=== PATIENT | male | born 1965 | race African-American/Black ===

== ENCOUNTER 2017-11-21 21:40 | Inpatient (IN) | payer MEDICAID ==
[~2017-11-21] VITALS: Ht 180.3 cm; Wt 114.8 kg
[2017-11-21 21:48] VITALS: BP 146/83; PULSE 72; RESP 14; TEMP 98; O2SAT 100
[2017-11-21] MEDS ORDERED: SODIUM CHLOR 0.9% 1000 ML INJ 1,000 ML IV SCH (21:55)
[2017-11-21 22:00] VITALS: RESP 15; O2SAT 100
[2017-11-21] MEDS ORDERED: SODIUM CHLORIDE 0.9% FLUSH 10 ML FLUSH IV FLUSH PRN ×2 (22:00→22:15)
[2017-11-21] MEDS ORDERED: MAGNESIUM HYDROXIDE SUSP 30 ML CUP PO PRN (22:15)
[2017-11-21] MEDS ORDERED: SENNOSIDES 8.6 MG TAB PO PRN (22:15)
[2017-11-21] MEDS ORDERED: LACTULOSE SYRUP 20 GM/30 ML CUP PO PRN (22:15)
[2017-11-21] MEDS ORDERED: ACETAMINOPHEN 325 MG TAB PO PRN (22:15)
[2017-11-21] MEDS ORDERED: ONDANSETRON HCL 4 MG/2 ML VIAL IVP PRN (22:15)
[2017-11-21] MEDS ORDERED: NALOXONE HCL 0.4 MG/ML AMP IV PUSH PRN (22:15)
[2017-11-21] MEDS ORDERED: BISACODYL 10 MG SUPP RECTAL PRN (22:15)
[2017-11-21 22:47] LABS: AUTOMATED NEUTROPHIL # 4.3 TH/MM3 (1.8-7.7); BASOPHIL # 0.1 TH/MM3 (0-0.2); BASOPHIL % 0.7 % (0.0-2.0); EOSINOPHIL # 0.5 TH/MM3 (0-0.4); EOSINOPHIL % 7.1 % (0.0-4.0); HEMATOCRIT 27.2 % (39.0-51.0); HEMOGLOBIN 8.5 GM/DL (13.0-17.0); LYMPHOCYTE # 1.7 TH/MM3 (1.0-4.8); MEAN CELL VOLUME 73.9 FL (80.0-100.0); MEAN CORPUSCULAR HEMOGLOBIN 23.2 PG (27.0-34.0); MEAN CORPUSCULAR HGB CONC 31.3 % (32.0-36.0); MEAN PLATELET VOLUME 8.8 FL (7.0-11.0); MONO % 10.4 % (0.0-8.0); MONOCYTE # 0.8 TH/MM3 (0-0.9); NEUT % 58.8 % (16.0-70.0); PLATELET COUNT 200 TH/MM3 (150-450); RED BLOOD COUNT 3.67 MIL/MM3 (4.50-5.90); RED CELL DISTRIBUTION WIDTH 21.8 % (11.6-17.2); WHITE BLOOD COUNT 7.3 TH/MM3 (4.0-11.0)
--- NOTE | 2017-11-21 22:57 | PD ---
HPI Chief Complaint: GI Complaint Time Seen by Provider: 21:55 Travel History International Travel<30 days: No Contact w/Intl Traveler<30days: No Traveled to known affect area: No History of Present Illness HPI 52-year-old man, transferred from [employer] for GI bleed. 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 Went to the ED with 10 days of abdominal pain, worse on the right side, associated with melena. He was found to have a hemoglobin of 8.9, decreased from baseline, so sent to the emergency. Discussed with hitesh scott, with GI, and Dr. Romano accepted. History Past Medical History Narrative Medical GI stromal tumor Diabetes Hypertension Tetanus Vaccination: Unknown Influenza Vaccination: No Social History Alcohol Use: No Tobacco Use: Yes (1/3 OF A PCK/DAY) Allergies-Medications (Allergen,Severity, Reaction): Coded Allergies: latex (Verified Adverse Reaction, Unknown, 11/21/17) Review of Systems Except as stated in HPI: all other systems reviewed are Neg Physical Exam Narrative GENERAL: 52-year-old man, generally well-appearing, no acute distress. SKIN: Focused skin assessment warm/dry. HEAD: Atraumatic. Normocephalic. EYES: Pupils equal and round. No scleral icterus. No injection or drainage. ENT: No nasal bleeding or discharge. Mucous membranes pink and moist. NECK: Trachea midline. No JVD. CARDIOVASCULAR: Regular rate and rhythm. No murmur appreciated. RESPIRATORY: No accessory muscle use. Clear to auscultation. Breath sounds equal bilaterally. GASTROINTESTINAL: Admits soft, mild diffuse tenderness. No rebound or guarding. Sclera little bit pale. MUSCULOSKELETAL: No obvious deformities. No clubbing. No cyanosis. No edema. NEUROLOGICAL: Awake and alert. No obvious cranial nerve deficits. Motor grossly within normal limits. Normal speech. PSYCHIATRIC: Appropriate mood and affect; insight and judgment normal. Data Data Last Documented VS Vital Signs Date Time Temp Pulse Resp B/P (MAP) Pulse Ox O2 Delivery O2 Flow Rate FiO2 11/21/17 22:00 15 100 Room Air 11/21/17 21:48 98.0 72 146/83 (104) Orders Orders Complete Blood Count With Diff (11/21/17 21:55) Iv Access Insert/Monitor (11/21/17 21:55) Pantoprazole Inj (Protonix Inj) (12/23/17 22:00) Ecg Monitoring (11/21/17 21:55) Oximetry (11/21/17 21:55) Sodium Chloride 0.9% Flush (Ns Flush) (11/21/17 22:00) Sodium Chlor 0.9% 1000 Ml Inj (Ns 1000 M (11/21/17 21:55) Admit Order (Ed Use Only) (11/21/17 ) Labs Laboratory Tests Test 11/21/17 22:05 White Blood Count 7.3 TH/MM3 Red Blood Count 3.67 MIL/MM3 Hemoglobin 8.5 GM/DL Hematocrit 27.2 % Mean Corpuscular Volume 73.9 FL Mean Corpuscular Hemoglobin 23.2 PG Mean Corpuscular Hemoglobin Concent 31.3 % Red Cell Distribution Width 21.8 % Platelet Count 200 TH/MM3 Mean Platelet Volume 8.8 FL Neutrophils (%) (Auto) 58.8 % Lymphocytes (%) (Auto) 23.0 % Monocytes (%) (Auto) 10.4 % Eosinophils (%) (Auto) 7.1 % Basophils (%) (Auto) 0.7 % Neutrophils # (Auto) 4.3 TH/MM3 Lymphocytes # (Auto) 1.7 TH/MM3 Monocytes # (Auto) 0.8 TH/MM3 Eosinophils # (Auto) 0.5 TH/MM3 Basophils # (Auto) 0.1 TH/MM3 CBC Comment DIFF FINAL Differential Comment MDM Medical Decision Making Medical Screen Exam Complete: Yes Emergency Medical Condition: Yes Differential Diagnosis GI bleed, melena, GI malignancy, other Narrative Course Medical decision making This 52-year-old man who presents to the emergency department as a transfer for GI bleed and melena. Looks well. Vital signs are stable. We'll recheck H&H. Reviewed outpatient records from [employer]. Reviewed EKG. Spoke with Dr. Chambers , will admit the patient. Nothing by mouth after midnight. GI consult. Diagnosis Primary Impression: GI bleed Admitting Information Admitting Physician Requests: Yaniv Washington MD Nov 21, 2017 22:57
[2017-11-21] MEDS: SODIUM CHLOR 0.9% 1000 ML INJ 1,000 ML IV SCH (23:10)
[2017-11-21] MEDS: PANTOPRAZOLE INJ 80 MG in SODIUM CHLORIDE 0.9% INJ 100 ML IV SCH (23:10)
[2017-11-21 23:11] VITALS: BP 147/78; PULSE 78; RESP 18; TEMP 98.1; O2SAT 98
[2017-11-22] VITALS (8 sets, daily range): BP systolic 127–145; BP diastolic 61–84; PULSE 72–83; RESP 16–20; TEMP 97.6–98.2; O2SAT 95–100
[2017-11-22] MEDS ORDERED: DEXTROSE 50% IN WATER 50 ML VIAL(D50) IV PUSH PRN (01:15)
[2017-11-22] MEDS ORDERED: GLUCAGON 1 MG/ML VIAL OTHER PRN (01:15)
--- NOTE | 2017-11-22 01:23 | HHI.HP ---
HPI Service [facility] Primary Care Physician Unknown Admission Diagnosis abdominal pain, GI bleed Diagnoses: Travel History International Travel<30 Days: No Contact w/Intl Traveler <30 Da: No Traveled to Known Affected Are: No History of Present Illness 52-year-old male with a past medical history significant for hypertension, diabetes and gastrointestinal stromal tumor with metastatic disease presents to the emergency department as a transfer from [facility]. The patient reports he has had 1.5 weeks of black, tarry stools and was being treated for a GI bleed. Gastroenterology was consulted and there was concern for a possible bleed from the patient's tumor. He was transferred to [facility] for possible invasive radiology intervention. The patient reports abdominal pain. Denies dizziness/lightheadedness. Vital signs stable. Labs pending. Patient is followed by oncology in [place]. He cannot remember the name of his oncologist. Review of Systems Denies fever or chills Denies blurry vision, otorrhea, rhinorrhea Denies sore throat and cough No chest pain, palpitations, shortness of breath Positive abdominal pain Denies constipation/diarrhea/nausea/vomiting Denies muscle pain/weakness No rashes Past Family Social History Past Medical History Hypertension Diabetes mellitus Gastrointestinal stromal tumor with metastatic disease Past Surgical History Bilateral knee surgery Left thumb L4-L5 laminectomy Reported Medications Patient reports he takes Gleevec 400 mg twice a day Allergies: Coded Allergies: latex (Verified Adverse Reaction, Unknown, 11/21/17) Family History Denies family history of diabetes mellitus/coronary artery disease Social History Smokes approximately one pack of cigarettes every 3 days. Denies alcohol use. Positive marijuana. Denies other illicit drugs. Physical Exam Vital Signs Vital Signs Date Time Temp Pulse Resp B/P (MAP) Pulse Ox O2 Delivery O2 Flow Rate FiO2 11/22/17 01:00 97.6 78 17 130/61 (84) 100 11/21/17 23:13 11/21/17 23:11 98.1 78 18 147/78 (101) 98 Room Air 11/21/17 22:00 15 100 Room Air 11/21/17 21:48 98.0 72 14 146/83 (457) 100 Physical Exam GENERAL: Russian Russian male lying in bed SKIN: No rashes, ecchymoses or lesions. Cool and dry. HEAD: Atraumatic. Normocephalic. No temporal or scalp tenderness. EYES: Pupils equal round and reactive. Extraocular motions intact. No scleral icterus. No injection or drainage. ENT: Nose without bleeding, purulent drainage or septal hematoma. Throat without erythema, tonsillar hypertrophy or exudate. Uvula midline. Airway patent. NECK: Trachea midline. No JVD or lymphadenopathy. Supple, nontender, no meningeal signs. CARDIOVASCULAR: Regular rate and rhythm without murmurs, gallops, or rubs. RESPIRATORY: Clear to auscultation. Breath sounds equal bilaterally. No wheezes , rales, or rhonchi. GASTROINTESTINAL: Abdomen soft, nondistended. Diffusely tender to palpation. No guarding. MUSCULOSKELETAL: Extremities without clubbing, cyanosis, or edema. No joint tenderness, effusion, or edema noted. No calf tenderness. NEUROLOGICAL: Awake and alert. Cranial nerves II through XII intact. Motor and sensory grossly within normal limits. Normal speech. Laboratory Laboratory Tests Test 11/21/17 22:05 11/22/17 00:28 White Blood Count 7.3 Red Blood Count 3.67 Hemoglobin 8.5 Hematocrit 27.2 Mean Corpuscular Volume 73.9 Mean Corpuscular Hemoglobin 23.2 Mean Corpuscular Hemoglobin Concent 31.3 Red Cell Distribution Width 21.8 Platelet Count 200 Mean Platelet Volume 8.8 Neutrophils (%) (Auto) 58.8 Lymphocytes (%) (Auto) 23.0 Monocytes (%) (Auto) 10.4 Eosinophils (%) (Auto) 7.1 Basophils (%) (Auto) 0.7 Neutrophils # (Auto) 4.3 Lymphocytes # (Auto) 1.7 Monocytes # (Auto) 0.8 Eosinophils # (Auto) 0.5 Basophils # (Auto) 0.1 CBC Comment DIFF FINAL Differential Comment Result Diagram: 11/21/17 5994 Caprini VTE Risk Assessment Caprini VTE Risk Assessment: Mod/High Risk (score >= 2) Caprini Risk Assessment Model Point Value = 1 Point Value = 2 Point Value = 3 Point Value = 5 Age 41-60 Minor surgery BMI > 25 kg/m2 Swollen legs Varicose veins or History of unexplained or recurrent spontaneous Oral contraceptives or hormone replacement Sepsis (< 1 month) Serious lung disease, including pneumonia (< 1 month) Abnormal pulmonary function Acute myocardial infarction Congestive heart failure (< 1 month) History of inflammatory bowel disease Medical patient at bed rest Age 61-74 Arthroscopic surgery Major open surgery (> 45 min) Laparoscopic surgery (> 45 min) Malignancy Confined to bed (> 72 hours) Immobilizing plaster cast Central venous access Age >= 75 History of VTE Family history of VTE Factor V Leiden Prothrombin [id number] Lupus anticoagulant Anticardiolipin antibodies Elevated serum homocysteine Heparin-induced thrombocytopenia Other congenital or acquired thrombophilia Stroke (< 1 month) Elective arthroplasty Hip, pelvis, or leg fracture Acute spinal cord injury (< 1 month) Prophylaxis Regimen Total Risk Factor Score Risk Level Prophylaxis Regimen 0-1 Low Early ambulation 2 Moderate Order ONE of the following: *Sequential Compression Device (SCD) *Heparin 5000 units SQ BID 3-4 Higher Order ONE of the following medications: *Heparin 5000 units SQ TID *Enoxaparin/Lovenox 40 mg SQ daily (WT < 150 kg, CrCl > 30 mL/min) *Enoxaparin/Lovenox 30 mg SQ daily (WT < 150 kg, CrCl > 10-29 mL/min) *Enoxaparin/Lovenox 30 mg SQ BID (WT < 150 kg, CrCl > 30 mL/min) AND/OR *Sequential Compression Device (SCD) 5 or more Highest Order ONE of the following medications: *Heparin 5000 units SQ TID (Preferred with Epidurals) *Enoxaparin/Lovenox 40 mg SQ daily (WT < 150 kg, CrCl > 30 mL/min) *Enoxaparin/Lovenox 30 mg SQ daily (WT < 150 kg, CrCl > 10-29 mL/min) *Enoxaparin/Lovenox 30 mg SQ BID (WT < 150 kg, CrCl > 30 mL/min) AND *Sequential Compression Device (SCD) Assessment and Plan Assessment and Plan Assessment/plan: 1. GI bleed/possible bleed related to patient's cancer H&H 8.5/27.2 Protonix drip Serial H&H Transfuse when necessary Gastroenterology consulted, appreciate recommendations 2. Metastatic GI stromal tumor Per patient he has metastases to the liver, spleen, stomach and lung Currently on Gleevec 400 mg twice a day Followed by oncology at [place] May require interventional radiology for possible bleed 3. Hypertension Resume home medications once reconciled 4. Diabetes mellitus Holding oral antihyperglycemic SSI Monitor blood glucose FEN NPO Electrolytes: monitor and replete prn Holding pharmacologic anticoagulation out of concern for active bleed Physician Certification 2 Midnight Certification Type: Admission for Inpatient Services Order for Inpatient Services The services are ordered in accordance with Medicare regulations or non- Medicare payer requirements, as applicable. In the case of services not specified as inpatient-only, they are appropriately provided as inpatient services in accordance with the 2-midnight benchmark. Estimated LOS (days): 2 2 days is the estimated time the patient will need to remain in the hospital, assuming treatment plan goals are met and no additional complications. Post-Hospital Plan: Not yet determined Mary Chambers MD Nov 22, 2017 01:23
[2017-11-22 01:31] LABS: HEMATOCRIT 25.4 % (39.0-51.0); HEMOGLOBIN 8.2 GM/DL (13.0-17.0)
[2017-11-22] MEDS: HYDROmorphone HCL PF 2 MG/ML VIAL IV PUSH PRN ×5 (04:50→23:51)
[2017-11-22 05:24] LABS: BICARBONATE 27.2 MEQ/L (21.0-32.0); CALCIUM 8.1 MG/DL (8.5-10.1); CREATININE 0.83 MG/DL (0.60-1.30)
[2017-11-22 05:27] LABS: AUTOMATED NEUTROPHIL # 3.9 TH/MM3 (1.8-7.7); BASOPHIL % 0.7 % (0.0-2.0); EOSINOPHIL # 0.4 TH/MM3 (0-0.4); EOSINOPHIL % 6.6 % (0.0-4.0); HEMATOCRIT 24.8 % (39.0-51.0); HEMOGLOBIN 8.1 GM/DL (13.0-17.0); LYMPH % 22.9 % (9.0-44.0); LYMPHOCYTE # 1.5 TH/MM3 (1.0-4.8); MEAN CELL VOLUME 73.8 FL (80.0-100.0); MEAN CORPUSCULAR HEMOGLOBIN 24.1 PG (27.0-34.0); MEAN CORPUSCULAR HGB CONC 32.7 % (32.0-36.0); MONO % 11.2 % (0.0-8.0); MONOCYTE # 0.7 TH/MM3 (0-0.9); NEUT % 58.6 % (16.0-70.0); PLATELET COUNT 196 TH/MM3 (150-450); RED BLOOD COUNT 3.37 MIL/MM3 (4.50-5.90); RED CELL DISTRIBUTION WIDTH 21.7 % (11.6-17.2); WHITE BLOOD COUNT 6.6 TH/MM3 (4.0-11.0)
[2017-11-22] MEDS: INSULIN ASPART SUPPLEMENTAL SCALE SQ SCH ×4 (08:00→21:00)
[2017-11-22] MEDS: SODIUM CHLOR 0.9% 1000 ML INJ 1,000 ML IV SCH (08:45)
[2017-11-22] MEDS: PANTOPRAZOLE INJ 80 MG in SODIUM CHLORIDE 0.9% INJ 100 ML IV SCH ×2 (08:55→21:00)
[2017-11-22] MEDS: SODIUM CHLORIDE 0.9% FLUSH 10 ML FLUSH IV FLUSH SCH ×2 (09:00→21:00)
[2017-11-22] MEDS: DOCUSATE SODIUM 50 MG/SENNA 8.6 MG TAB PO SCH ×2 (09:00→21:00)
[2017-11-22 10:44] LABS: HEMATOCRIT 24.2 % (39.0-51.0); HEMOGLOBIN 7.8 GM/DL (13.0-17.0)
--- NOTE | 2017-11-22 12:29 | PD.CONS ---
HPI History of Present Illness This is a 52 year old male with hx GI stromal tumor diagnosed 1 y ago with mets to liver and spleen, DM, HTN who was transferred from [place] for GIB. he is having melanotic stool. has been having abd pain diffusely for last 2 weeks. Had EGD and colonoscopy 2-3 m ago at [facility] with findings colon polyp, no further details from pt. Denies n/v. Followed by oncology in [place]. Limited historian. (Wendy Call) PFSH Past Medical History Hypertension Diabetes mellitus Gastrointestinal stromal tumor with metastatic disease Past Surgical History Bilateral knee surgery Left thumb L4-L5 laminectomy (Wendy Call) Coded Allergies: latex (Verified Adverse Reaction, Unknown, 11/21/17) Family History Denies family history of diabetes mellitus/coronary artery disease Social History Smokes approximately one pack of cigarettes every 3 days. Denies alcohol use. Positive marijuana. Denies other illicit drugs. (Wendy Call) Review of Systems Constitutional: DENIES: Dizziness Eyes: DENIES: Blurred vision Ears, nose, mouth, throat: DENIES: Hearing loss Respiratory: DENIES: Wheezing Cardiovascular: DENIES: Syncope Gastrointestinal: COMPLAINS OF: Abdominal pain, Black stools, DENIES: Bloody stools, Constipation, Diarrhea, Nausea, Vomiting, Hematemesis Genitourinary: DENIES: Hematuria Musculoskeletal: DENIES: Joint Swelling Integumentary: DENIES: Rash Hematologic/lymphatic: DENIES: Bruising Psychiatric: DENIES: Anxiety (Wendy Call) GI Exam Vitals I&O Vital Signs Date Time Temp Pulse Resp B/P (MAP) Pulse Ox O2 Delivery O2 Flow Rate FiO2 11/22/17 08:40 97.8 83 20 127/71 (89) 95 11/22/17 05:00 97.8 77 17 142/79 (100) 97 11/22/17 01:00 97.6 78 17 130/61 (84) 100 11/21/17 23:13 11/21/17 23:11 98.1 78 18 147/78 (101) 98 Room Air 11/21/17 22:00 15 100 Room Air 11/21/17 21:48 98.0 72 14 146/83 (104) 100 I/O 11/21/17 11/21/17 11/21/17 11/22/17 11/22/17 11/22/17 07:00 15:00 23:00 07:00 15:00 23:00 Intake Total 803 ml Output Total 450 ml Balance 353 ml Intake IV Total 803 ml Output Urine Total 450 ml Laboratory Test 11/21/17 22:05 11/22/17 00:28 11/22/17 04:43 11/22/17 10:24 White Blood Count 7.3 TH/MM3 6.6 TH/MM3 Red Blood Count 3.67 MIL/MM3 3.37 MIL/MM3 Hemoglobin 8.5 GM/DL 8.2 GM/DL 8.1 GM/DL 7.8 GM/DL Hematocrit 27.2 % 25.4 % 24.8 % 24.2 % Mean Corpuscular Volume 73.9 FL 73.8 FL Mean Corpuscular Hemoglobin 23.2 PG 24.1 PG Mean Corpuscular Hemoglobin Concent 31.3 % 32.7 % Red Cell Distribution Width 21.8 % 21.7 % Platelet Count 200 TH/MM3 196 TH/MM3 Mean Platelet Volume 8.8 FL 9.0 FL Neutrophils (%) (Auto) 58.8 % 58.6 % Lymphocytes (%) (Auto) 23.0 % 22.9 % Monocytes (%) (Auto) 10.4 % 11.2 % Eosinophils (%) (Auto) 7.1 % 6.6 % Basophils (%) (Auto) 0.7 % 0.7 % Neutrophils # (Auto) 4.3 TH/MM3 3.9 TH/MM3 Lymphocytes # (Auto) 1.7 TH/MM3 1.5 TH/MM3 Monocytes # (Auto) 0.8 TH/MM3 0.7 TH/MM3 Eosinophils # (Auto) 0.5 TH/MM3 0.4 TH/MM3 Basophils # (Auto) 0.1 TH/MM3 0.0 TH/MM3 CBC Comment DIFF FINAL DIFF FINAL Differential Comment Blood Urea Nitrogen 15 MG/DL Creatinine 0.83 MG/DL Random Glucose 73 MG/DL Calcium Level 8.1 MG/DL Sodium Level 143 MEQ/L Potassium Level 3.8 MEQ/L Chloride Level 110 MEQ/L Carbon Dioxide Level 27.2 MEQ/L Anion Gap 6 MEQ/L Estimat Glomerular Filtration Rate 117 ML/MIN Physical Examination HEENT: PERRL; normocephalic; atraumatic; no jaundice. CHEST: CTA CARDIAC: RRR + murmur ABDOMEN: Soft, mildly distended, diffuse TTP; no hepatosplenomegaly; bowel sounds are present in all four quadrants. EXTREMITIES: No clubbing, cyanosis, or edema. SKIN: Normal; no rash; no jaundice. NET WASHER: No focal deficits; alert and oriented times three. (Wendy Call) Assessment and Plan Plan ASSESSMENT melena, anemia - anemia microcytic hypochromic likely multifactorial, gradual drop in HGB over last 24h. transferred from [place] for GI bleeding. concern for bleeding mass. - abd pain - GIST tumor mets to liver and spleen PLAN - coags - EGD today 1400 - obtain consent - keep NPO - consider IR consult for embolization depending on EGD findings - supportive care - further recs to follow This pt seen bydarling and Dr Fragoso and this note is written on his behalf (Wendy Call) Physician Comments Seen and examined, plan as above. Will proceed with EGD today. Further recommendations to follow. (Mendel Fragoso MD) Wendy Call Nov 22, 2017 12:29 Mendel Fragoso MD Nov 22, 2017 14:41
[2017-11-22 13:20] LABS: INTERNATIONAL NORMALIZED RATIO 1.1 RATIO; PROTHROMBIN TIME - PATIENT 10.7 SEC (9.8-11.6)
--- NOTE | 2017-11-22 14:40 | GIPROC ---
[facility] [address] [facility]. [facility], [address] EGD PROCEDURE REPORT EXAM DATE: 11/22/2017 PATIENT NAME: Lanre Burt MR #: [id number] BIRTHDATE: 1965 ATTENDING: Mendel Fragoso MD ORDER #: [id number] SCIENTIST: STATUS: inpatient INDICATIONS: The patient is a 52 yr old male here for an EGD due to melena PROCEDURE PERFORMED: EGD w/ control of bleeding MEDICATIONS: None and Per Anesthesia. TOPICAL ANESTHETIC: CONSENT: The patient understands the risks and benefits of the procedure and understands that these risks include, but are not limited to: sedation, allergic reaction, infection, perforation and/or bleeding. Alternative means of evaluation and treatment include, among others: physical exam, x-rays, and/or surgical intervention. The patient elects to proceed with this endoscopic procedure. medical equipment was checked for proper function. Hand hygiene and appropriate measures for infection prevention was taken. After the risks, benefits and alternatives of the procedure were thoroughly explained, Informed consent was verified, confirmed and timeout was successfully executed by the treatment team. The patient was anesthetized with topical anesthesia and the endoscope was introduced through the mouth and advanced to the second portion of the duodenum. Retroflexion was performed and was normal The gastroscope was then slowly withdrawn and removed. ESOPHAGUS: The mucosa of the esophagus appeared normal. DUODENUM: The duodenal mucosa appeared normal in the bulb and second portion of the duodenum. STOMACH: A large bleeding, irregular shaped and deep ulcer with heaped up edges, an adherent clot and active oozing of blood was found in the gastric body. Complete hemostasis was achieved by placing a single Cook instinct hemoclip on the bleeding site(s). ADVERSE EVENTS: There were no complications. IMPRESSIONS: 1. The esophagus appeared normal 2. Normal duodenal mucosa in the bulb and second portion of the duodenum 3. 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 4. Retroflexion was performed and was normal RECOMMENDATIONS: Continue PPI PATIENT CONDITION: stable DISPOSITION: Observation REPEAT EXAM: NONE Mendel Fragoso MD eSigned: Mendel Fragoso MD 11/22/2017 2:40 PM cc: PATIENT NAME: Lanre Burt MR#: [id number]
[2017-11-22] MEDS ORDERED: DO NOT ADM ANY ANTICOAGULANT DRUGS PRN (14:45)
[2017-11-22 17:30] LABS: HEMATOCRIT 23.7 % (39.0-51.0); HEMOGLOBIN 7.5 GM/DL (13.0-17.0)
[2017-11-22] MEDS: DEXT 5%-NACL 0.9% 1000 ML INJ 1,000 ML IV SCH (17:30)
[2017-11-22 20:42] LABS: IRON (FE) 12 MCG/DL (65-175)
[2017-11-22 20:45] LABS: % SATURATION IRON PROFILE 3.7 % (20-50); FERRITIN 36 NG/ML (26-388); TOTAL IRON BINDING CAPACITY 323 MCG/DL (250-450)
[2017-11-23 05:15] VITALS: BP 157/89; PULSE 80; RESP 17; TEMP 98.9; O2SAT 98
[2017-11-23] MEDS: HYDROmorphone HCL PF 2 MG/ML VIAL IV PUSH PRN ×4 (05:26→20:00)
[2017-11-23] MEDS: PANTOPRAZOLE INJ 80 MG in SODIUM CHLORIDE 0.9% INJ 100 ML IV SCH ×2 (05:59→18:30)
[2017-11-23] MEDS: DEXT 5%-NACL 0.9% 1000 ML INJ 1,000 ML IV SCH (06:32)
[2017-11-23 07:48] VITALS: O2SAT 98
[2017-11-23 07:54] LABS: HEMATOCRIT 27.7 % (39.0-51.0); HEMOGLOBIN 9.1 GM/DL (13.0-17.0); MEAN CELL VOLUME 74.3 FL (80.0-100.0); MEAN CORPUSCULAR HEMOGLOBIN 24.3 PG (27.0-34.0); MEAN CORPUSCULAR HGB CONC 32.7 % (32.0-36.0); MEAN PLATELET VOLUME 8.7 FL (7.0-11.0); PLATELET COUNT 195 TH/MM3 (150-450); RED BLOOD COUNT 3.73 MIL/MM3 (4.50-5.90); RED CELL DISTRIBUTION WIDTH 21.5 % (11.6-17.2); WHITE BLOOD COUNT 6.7 TH/MM3 (4.0-11.0)
[2017-11-23] MEDS: INSULIN ASPART SUPPLEMENTAL SCALE SQ SCH ×4 (08:00→20:00)
[2017-11-23] MEDS: DOCUSATE SODIUM 50 MG/SENNA 8.6 MG TAB PO SCH ×2 (09:00→20:00)
[2017-11-23 09:25] VITALS: BP 156/87; PULSE 78; RESP 18; TEMP 98.7; O2SAT 99
[2017-11-23] MEDS: SODIUM CHLORIDE 0.9% FLUSH 10 ML FLUSH IV FLUSH SCH ×2 (10:34→20:00)
--- NOTE | 2017-11-23 12:18 | HHI.GIFU ---
Subjective Remarks Pt resting in bed. No obvious bleeding. Hungry. (Wendy Call) Objective Vitals I&O Vital Signs Date Time Temp Pulse Resp B/P (MAP) Pulse Ox O2 Delivery O2 Flow Rate FiO2 11/23/17 09:25 98.7 78 18 156/87 (110) 99 11/23/17 07:48 98 21 11/23/17 05:15 98.9 80 17 157/89 (111) 98 11/22/17 23:57 97.8 83 16 145/81 100 11/22/17 23:42 97.6 77 16 136/63 99 11/22/17 20:00 98.2 72 17 145/80 (101) 98 11/22/17 16:37 98.1 75 20 131/74 (93) 98 11/22/17 15:00 75 18 133/68 (89) 97 11/22/17 14:44 97.9 84 18 120/65 (83) 98 11/22/17 12:35 97.7 80 20 137/84 (101) 97 I/O 11/22/17 11/22/17 11/22/17 11/23/17 11/23/17 11/23/17 07:00 15:00 23:00 07:00 15:00 23:00 Intake Total 803 ml 400 ml 20 ml 1300 ml Output Total 450 ml 600 ml 1500 ml Balance 353 ml 400 ml -580 ml -200 ml Intake Oral 0 ml 0 ml IV Total 803 ml 20 ml 775 ml Packed Cells 400 ml Blood Product IV Normal Saline Flush 125 ml Other 400 ml Output Urine Total 450 ml 600 ml 1500 ml # Voids 3 # Bowel Movements 0 0 Laboratory Laboratory Tests Test 11/22/17 12:50 11/22/17 16:46 11/22/17 19:56 11/23/17 07:45 Prothrombin Time 10.7 Prothromb Time International Ratio 1.1 Activated Partial Thromboplast Time 24.3 Hemoglobin 7.5 9.1 Hematocrit 23.7 27.7 Iron Level 12 Total Iron Binding Capacity 323 Percent Iron Saturation 3.7 Ferritin 36 White Blood Count 6.7 Red Blood Count 3.73 Mean Corpuscular Volume 74.3 Mean Corpuscular Hemoglobin 24.3 Mean Corpuscular Hemoglobin Concent 32.7 Red Cell Distribution Width 21.5 Platelet Count 195 Mean Platelet Volume 8.7 Physical Exam HEENT: PERRL; normocephalic; atraumatic; no jaundice. CHEST: CTA CARDIAC: RRR ABDOMEN: Soft, mildly distended, nontender; no hepatosplenomegaly; bowel sounds are present in all four quadrants. EXTREMITIES: No clubbing, cyanosis, or edema. SKIN: Normal; no rash; no jaundice. EDUCATIONAL AIDE: No focal deficits; alert and oriented times three. (Wendy Call) Assessment and Plan Plan ASSESSMENT melena, anemia - anemia microcytic hypochromic likely multifactorial, gradual drop in HGB over last 24h. transferred from [place] for GI bleeding. HH improved, s/p 1 x PRBC yesterday. s/p EGD found large malignant ulcer with intermittent oozing blood from visible blood vessel, 1 x clip applied will advance diet - abd pain - GIST tumor mets to liver and spleen PLAN - soft diet - monitor HH - if active bleeding, IR consult for embolization - supportive care - follow up with GI and oncology after d/c This pt seen bydarling and Dr Fragoso and this note is written on his behalf (Wendy Call) Physician Comments Seen and examined, plan as above. No evidence of bleeding post endoclip. Will start feeding and follow HH. (Mendel Fragoso MD) Wendy Call Nov 23, 2017 12:18 Mendel Fragoso MD Nov 23, 2017 12:48
[2017-11-23 12:42] VITALS: BP 156/88; PULSE 82; RESP 18; TEMP 98.9; O2SAT 98
--- NOTE | 2017-11-23 15:12 | HHI.PR ---
Subjective Remarks doing well no abdominal pain, nausea or vomiting + flatus has not had an BM yet no dizziness, up and ambulating Objective Vitals Vital Signs Date Time Temp Pulse Resp B/P (MAP) Pulse Ox O2 Delivery O2 Flow Rate FiO2 11/23/17 12:42 98.9 82 18 156/88 (110) 98 11/23/17 09:25 98.7 78 18 156/87 (110) 99 11/23/17 07:48 98 21 11/23/17 05:15 98.9 80 17 157/89 (111) 98 11/22/17 23:57 97.8 83 16 145/81 100 11/22/17 23:42 97.6 77 16 136/63 99 11/22/17 20:00 98.2 72 17 145/80 (101) 98 11/22/17 16:37 98.1 75 20 131/74 (93) 98 I/O 11/22/17 11/22/17 11/22/17 11/23/17 11/23/17 11/23/17 07:00 15:00 23:00 07:00 15:00 23:00 Intake Total 803 ml 400 ml 20 ml 1300 ml Output Total 450 ml 600 ml 1500 ml Balance 353 ml 400 ml -580 ml -200 ml Intake Oral 0 ml 0 ml IV Total 803 ml 20 ml 775 ml Packed Cells 400 ml Blood Product IV Normal Saline Flush 125 ml Other 400 ml Output Urine Total 450 ml 600 ml 1500 ml # Voids 3 # Bowel Movements 0 0 Result Diagram: 11/23/17 0745 11/22/17 0443 A/P Assessment and Plan Assessment/plan: 1. UGIB History of GIST S/P EGD 11/22 with findings of malignant ulcer in the gastric body with bvisble vessel with some oozing- hemoclipping done S/P 2 units RBC H and H improved on IV PPI started on diet monitor for any signs of rebleeding 2. Metastatic GI stromal tumor Per patient he has metastases to the liver, spleen, stomach and lung Currently on Gleevec 400 mg twice a day Followed by oncology at [place] 3. Hypertension- as OP is on Lisinopril 20 mg daily will start po Lisinopril at 5 mg daily for now and monitor 4. Diabetes mellitus -per patient on Lantus and Novolog as OP- hold for now =per pt PCP plans to switch him to a fixed combination 70/30 - good readings on sliding scale - monitor- started on diet today 5. Iron deficiency anemia- likely from chronic GI loss - give IV Venofer 200 mg x1 start po Iron sulfate 325 mg po bid advise patient to ff up with PCP to check Iron levels No pharmacologic DVT prophylaxis patient up and ambulating DC in 1 -2 days if no bleeding and cleared by GI patientis from Jessa Trinh MD Nov 23, 2017 15:12
[2017-11-23] MEDS ORDERED: IRON SUCROSE INJ 200 MG in SODIUM CHLORIDE 0.9% INJ 100 ML IV ONE ×2 (15:15→16:00)
[2017-11-23 16:53] VITALS: BP 135/83; PULSE 86; RESP 17; TEMP 98.8; O2SAT 99
[2017-11-23 20:00] VITALS: BP 150/83; PULSE 99; RESP 20; TEMP 99.5; O2SAT 100
[2017-11-23] MEDS: FERROUS SULFATE 325 MG (65 MG ELEMENTAL IRON) TAB PO SCH (20:00)
[2017-11-24] VITALS: BP 147/82; PULSE 108; RESP 20; TEMP 99.4; O2SAT 97
[2017-11-24] MEDS: HYDROmorphone HCL PF 2 MG/ML VIAL IV PUSH PRN ×2 (01:56→06:20)
[2017-11-24] MEDS: PANTOPRAZOLE INJ 80 MG in SODIUM CHLORIDE 0.9% INJ 100 ML IV SCH (04:53)
[2017-11-24] MEDS: DEXT 5%-NACL 0.9% 1000 ML INJ 1,000 ML IV SCH (04:54)
[2017-11-24 05:40] LABS: HEMOGLOBIN 8.5 GM/DL (13.0-17.0); MEAN CELL VOLUME 74.9 FL (80.0-100.0); MEAN CORPUSCULAR HEMOGLOBIN 23.6 PG (27.0-34.0); MEAN CORPUSCULAR HGB CONC 31.5 % (32.0-36.0); MEAN PLATELET VOLUME 8.9 FL (7.0-11.0); PLATELET COUNT 175 TH/MM3 (150-450); RED CELL DISTRIBUTION WIDTH 21.2 % (11.6-17.2); WHITE BLOOD COUNT 6.8 TH/MM3 (4.0-11.0)
[2017-11-24 06:12] VITALS: BP 165/85; PULSE 89; RESP 20; TEMP 99.4; O2SAT 98
[2017-11-24 07:27] VITALS: BP 142/79; PULSE 87; RESP 19; TEMP 98.7; O2SAT 96
[2017-11-24] MEDS: INSULIN ASPART SUPPLEMENTAL SCALE SQ SCH ×3 (08:00→17:00)
[2017-11-24] MEDS ORDERED: LISINOPRIL 5 MG TAB PO SCH (09:00)
[2017-11-24] MEDS: SODIUM CHLORIDE 0.9% FLUSH 10 ML FLUSH IV FLUSH SCH (09:00)
[2017-11-24] MEDS: DOCUSATE SODIUM 50 MG/SENNA 8.6 MG TAB PO SCH (09:41)
[2017-11-24] MEDS: FERROUS SULFATE 325 MG (65 MG ELEMENTAL IRON) TAB PO SCH (09:41)
[2017-11-24 11:46] VITALS: BP 158/85; PULSE 87; RESP 20; TEMP 98.4; O2SAT 99
[2017-11-24] MEDS ORDERED: METHYLNALTREXONE BROMIDE 12 MG/0.6 ML VIAL SQ SCH (12:00)
--- NOTE | 2017-11-24 12:47 | HHI.GIFU ---
Subjective Remarks Resting in the bed awake answers questions appropriately No acute abdominal pain nausea or bloating Patient lives in [place], wants to return to gastroenterology in his area May need some assistance from case management (Bev Starr) Objective Vitals I&O Vital Signs Date Time Temp Pulse Resp B/P (MAP) Pulse Ox O2 Delivery O2 Flow Rate FiO2 11/24/17 11:46 98.4 87 20 158/85 (109) 99 11/24/17 07:27 98.7 87 19 142/79 (100) 96 11/24/17 06:12 99.4 89 20 165/85 (111) 98 11/24/17 00:00 99.4 108 20 147/82 (103) 97 11/23/17 20:00 99.5 99 20 150/83 (105) 100 11/23/17 16:53 98.8 86 17 135/83 (100) 99 I/O 11/23/17 11/23/17 11/23/17 11/24/17 11/24/17 11/24/17 07:00 15:00 23:00 07:00 15:00 23:00 Intake Total 1300 ml 200 ml 360 ml Output Total 1500 ml 750 ml 2 ml Balance -200 ml -550 ml 358 ml Intake Oral 0 ml 360 ml IV Total 775 ml 200 ml Packed Cells 400 ml Blood Product IV Normal Saline Flush 125 ml Output Urine Total 1500 ml 750 ml 2 ml # Voids 3 # Bowel Movements 0 Laboratory Laboratory Tests Test 11/24/17 04:49 White Blood Count 6.8 Red Blood Count 3.60 Hemoglobin 8.5 Hematocrit 27.0 Mean Corpuscular Volume 74.9 Mean Corpuscular Hemoglobin 23.6 Mean Corpuscular Hemoglobin Concent 31.5 Red Cell Distribution Width 21.2 Platelet Count 175 Mean Platelet Volume 8.9 Physical Exam HEENT: PERRL; normocephalic; atraumatic; no jaundice. CHEST: CTA CARDIAC: RRR ABDOMEN: Soft, mildly distended, nontender; no hepatosplenomegaly; bowel sounds are present in all four quadrants. EXTREMITIES: No clubbing, cyanosis, or edema. SKIN: Normal; no rash; no jaundice. AUTOMATION TECH: No focal deficits; alert and oriented times three. (Bev Starr) Assessment and Plan Plan ASSESSMENT melena, anemia - anemia microcytic hypochromic likely multifactorial, gradual drop in HGB over last 24h. transferred from [place] for GI bleeding. 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 daily. - monitor HH - if active bleeding, IR consult for embolization - supportive care - ok to follow up with GI in [place] This pt seen bydarling and Dr Fragoso and this note is written on his behalf (Bev Starr) Physician Comments As above, bleeding stopped after endoclip placement. Advance diet, stable from GI point of view. (Mendel Fragoso MD) Bev Starr Nov 24, 2017 12:47 Mendel Fragoso MD Nov 24, 2017 15:12
[2017-11-24] MEDS ORDERED: PANTOPRAZOLE SOD 40 MG DELAYED RELEASE TAB PO SCH (13:00)
[2017-11-24 15:50] VITALS: BP 164/85; PULSE 85; RESP 20; TEMP 98.6; O2SAT 100
[2017-11-24] MEDS ORDERED: PANT40TA3 PO (16:47)
[2017-11-24] MEDS ORDERED: LISI10TA PO (16:54)
--- NOTE | 2017-11-24 16:55 | HHI.DCPOC ---
Discharge Care Plan Diagnosis: (1) Malignant gastric ulcer (2) GI bleed Additional Problems Have your PCP recheck your blood level (hemoglobin) especially if you notice any further bloody bowel movements. Completely refrain from using any and all NSAIDS including but not limited to Advil, ibuprofen, Aleve, naproxen, Naprosyn , Advil, Goody powders, BC powders. Goals to Promote Your Health * To prevent worsening of your condition and complications * To maintain your health at the optimal level Directions to Meet Your Goals Take your medications as prescribed Follow your dietary instruction Follow activity as directed Keep your appointments as scheduled Take your immunizations and boosters as scheduled If your symptoms worsen call your PCP, if no PCP go to Urgent Care Center or Emergency Room Smoking is Dangerous to Your Health. Avoid second hand smoke Call the 24-hour hour crisis hotline for domestic abuse at Noé Mendez MD Nov 24, 2017 16:55
[2017-11-24] MEDS ORDERED: ROXI30TA14 PO (16:57)
--- NOTE | 2017-11-24 17:01 | HHI.DS ---
Discharge Summary Admission Date Nov 22, 2017 at 01:13 Discharge Date: Nov 24, 2017 Admitting Diagnosis abdominal pain, GI bleed (1) Malignant gastric ulcer ICD Code: C16.9 - Malignant neoplasm of stomach, unspecified (2) GI bleed ICD Code: K92.2 - Gastrointestinal hemorrhage, unspecified Status: Acute Procedures EGD Brief History - From Admission 52-year-old male with a past medical history significant for hypertension, diabetes and gastrointestinal stromal tumor with metastatic disease presents to the emergency department as a transfer from [facility]. The patient reports he has had 1.5 weeks of black, tarry stools and was being treated for a GI bleed. Gastroenterology was consulted and there was concern for a possible bleed from the patient's tumor. He was transferred to [facility] for possible invasive radiology intervention. The patient reports abdominal pain. Denies dizziness/lightheadedness. Vital signs stable. Labs pending. Patient is followed by oncology in [place]. He cannot remember the name of his oncologist. CBC/BMP: 11/24/17 0449 11/22/17 0443 Significant Findings Laboratory Tests Test 11/21/17 22:05 11/22/17 00:28 11/22/17 04:43 11/22/17 10:24 Red Blood Count 3.67 MIL/MM3 (4.50-5.90) 3.37 MIL/MM3 (4.50-5.90) Hemoglobin 8.5 GM/DL (13.0-17.0) 8.2 GM/DL (13.0-17.0) 8.1 GM/DL (13.0-17.0) 7.8 GM/DL (13.0-17.0) Hematocrit 27.2 % (39.0-51.0) 25.4 % (39.0-51.0) 24.8 % (39.0-51.0) 24.2 % (39.0-51.0) Mean Corpuscular Volume 73.9 FL (80.0-100.0) 73.8 FL (80.0-100.0) Mean Corpuscular Hemoglobin 23.2 PG (27.0-34.0) 24.1 PG (27.0-34.0) Mean Corpuscular Hemoglobin Concent 31.3 % (32.0-36.0) Red Cell Distribution Width 21.8 % (11.6-17.2) 21.7 % (11.6-17.2) Monocytes (%) (Auto) 10.4 % (0.0-8.0) 11.2 % (0.0-8.0) Eosinophils (%) (Auto) 7.1 % (0.0-4.0) 6.6 % (0.0-4.0) Eosinophils # (Auto) 0.5 TH/MM3 (0-0.4) Random Glucose 73 MG/DL (74-106) Calcium Level 8.1 MG/DL (8.5-10.1) Chloride Level 110 MEQ/L (98-107) Test 11/22/17 12:50 11/22/17 16:46 11/22/17 19:56 11/23/17 07:45 Hemoglobin 7.5 GM/DL (13.0-17.0) 9.1 GM/DL (13.0-17.0) Hematocrit 23.7 % (39.0-51.0) 27.7 % (39.0-51.0) Iron Level 12 MCG/DL (65-175) Percent Iron Saturation 3.7 % (20-50) Red Blood Count 3.73 MIL/MM3 (4.50-5.90) Mean Corpuscular Volume 74.3 FL (80.0-100.0) Mean Corpuscular Hemoglobin 24.3 PG (27.0-34.0) Red Cell Distribution Width 21.5 % (11.6-17.2) Test 11/24/17 04:49 Red Blood Count 3.60 MIL/MM3 (4.50-5.90) Hemoglobin 8.5 GM/DL (13.0-17.0) Hematocrit 27.0 % (39.0-51.0) Mean Corpuscular Volume 74.9 FL (80.0-100.0) Mean Corpuscular Hemoglobin 23.6 PG (27.0-34.0) Mean Corpuscular Hemoglobin Concent 31.5 % (32.0-36.0) Red Cell Distribution Width 21.2 % (11.6-17.2) PE at Discharge Middle-aged black male lying in bed, no acute distress Abdomen is soft, nontender, nondistended Hospital Course Patient was admitted, started on Protonix drip. Gastroenterology performed an EGD which showed in losing malignant gastric ulcer which was successfully clipped and hemostasis was achieved. Patient's blood counts remained stable. Tolerated by mouth intake well. Patient was counseled extensively on avoiding nonsteroidal anti-inflammatory drugs. He was informed about following up as an outpatient especially regarding his blood levels and for primary care and gastroenterology. Patient has met maximal benefit from hospitalization and is clinically stable for discharge. Pt Condition on Discharge: Stable Discharge Disposition: Discharge Home Discharge Time: > 30 minutes Discharge Instructions Follow up Referrals: Gastroenterology - 2 Weeks with Mendel Fragoso MD PCP Follow-up - 1 Week New Medications: Lisinopril-Hctz (Lisinopril-Hctz) 10-12.5 Mg Tab 1 TAB PO DAILY for Blood Pressure Management, #30 TAB 0 Refills Oxycodone (Roxicodone) 30 Mg Tab 30 MG PO Q6H PRN for PAIN, #120 TAB 0 Refills Pantoprazole (Pantoprazole) 40 Mg Tab 40 MG PO DAILY for acid reduction, #30 TAB Noé Mendez MD Nov 24, 2017 17:01
== END 2017-11-24 17:42 | disposition home or self-care (01) | DRG 543 ==
LOC: NEPE 21:40 → NEDA 22:10 → N05B 23:17 → OBSVTOIN 11-22 01:13
PROVIDERS: ADMIT Hospitalist; ATTEND Hospitalist
PROC: 0W3P8ZZ Control Bleeding in Gastrointestinal Tract, Via Natural or Artificial Opening Endoscopic (ICD-10-PCS; 2017-11-22)
PROC: 30233N1 Transfusion of Nonautologous Red Blood Cells into Peripheral Vein, Percutaneous Approach (ICD-10-PCS; principal; 2017-11-22 14:15)
DX: C49.A2 Gastrointestinal stromal tumor of stomach (principal); K92.2 Gastrointestinal hemorrhage, unspecified; C78.00 Secondary malignant neoplasm of unspecified lung; C78.89 Secondary malignant neoplasm of other digestive organs; C78.7 Secondary malignant neoplasm of liver and intrahepatic bile duct; I10 Essential (primary) hypertension; E11.9 Type 2 diabetes mellitus without complications; D50.0 Iron deficiency anemia secondary to blood loss (chronic); F17.210 Nicotine dependence, cigarettes, uncomplicated; Z79.4 Long term (current) use of insulin
CPT/HCPCS: 36430; 80048; 82728; 82948; 83540; 83550; 85014; 85018; 85025; 85027; 85610; 85730; 86077; 86850; 86870; 86900; 86901; 86902; 86920; 86922; 96365; 96375; C9113; G0378; J1170; J1756; J2212; J2405; J7030; J7042; P9016

== ENCOUNTER 2018-02-20 17:31 | Inpatient (IN) | payer MEDICAID, OTHER ==
[~2018-02-20] VITALS: Ht 180.3 cm; Wt 101.0 kg
[~2018-02-20 17:31] MED LIST: LISI10TA PO; PANT40TA3 PO; ROXI30TA14 PO
[2018-02-20 18:07] VITALS: BP 153/90; PULSE 109; RESP 17; TEMP 98.6; O2SAT 100
[2018-02-20] MEDS ORDERED: IRON18TA (18:29)
[2018-02-20] MEDS ORDERED: SODIUM CHLOR 0.9% 1000 ML INJ 1,000 ML IV SCH (19:05)
[2018-02-20] MEDS ORDERED: PANTOPRAZOLE INJ 80 MG in SODIUM CHLORIDE 0.9% INJ 35 ML IV ONE (19:05)
--- NOTE | 2018-02-20 19:11 | PD ---
HPI Chief Complaint: Bleeding Time Seen by Provider: 18:58 Travel History International Travel<30 days: No Contact w/Intl Traveler<30days: No Traveled to known affect area: No History of Present Illness HPI The patient is a 52-year-old [place] male who presents to the emergency department for vomiting blood and dark black stool. Patient notes black tarry, melena-like stool for 1 week's duration. He also notes a few episodes of vomiting blood which is dark red to brown. He does have a history of gastric ulcer which is malignant and is followed by Dr. Bonilla in [place], [place]. He is currently taking Gleevac, however, he could not afford his radiation therapy. The patient states she had a bleeding ulcer in October and they placed a "clip "on the bleeding ulcer. He does complain of shortness of breath with exertion, lightheadedness, and dizziness. He denies any acute chest pain or shortness of breath. He does complain of a headache but denies any significant abdominal pain. The symptoms are moderate. There are no current alleviating factors. Possibly exacerbated by history of gastric cancer with malignant ulcer. PFSH Past Medical History Asthma: Yes Cancer: Yes (LIVER, SPLEEN, STOMACH) Cardiovascular Problems: Yes (HTN) Chest Pain: Yes Diabetes: Yes Patient Takes Glucophage: No Gastrointestinal Disorders: Yes (GISD Cancer Stage 4, 2016) Hypertension: Yes Social History Alcohol Use: No Tobacco Use: Yes (1/3 OF A PCK/DAY) Substance Use: Yes (MARIJUANA) Allergies-Medications (Allergen,Severity, Reaction): Coded Allergies: latex (Verified Adverse Reaction, Unknown, 02/20/18) Reported Meds & Prescriptions Reported Meds & Active Scripts Active Roxicodone (Oxycodone HCl) 30 Mg Tab 30 Mg PO Q6H PRN Lisinopril-Hctz 10-12.5 Mg Tab 1 Tab PO DAILY Pantoprazole (Pantoprazole Sodium) 40 Mg Tab 40 Mg PO DAILY Reported Iron (Ferrous Sulfate) 18 Mg Tab 324 Mg Review of Systems Except as stated in HPI: all other systems reviewed are Neg HENT: Positive: Lightheadedness Cardiovascular: Positive: Dyspnea on exertion, No: Chest Pain or Discomfort Respiratory: No: Shortness of Breath Gastrointestinal: Positive: Nausea, Vomiting, Hematemesis, Changes in Bowel Habits, Loss of Appetite, No: Abdominal Pain Musculoskeletal: No: Weakness Neurologic: Positive: Dizziness Physical Exam Narrative GENERAL: Awake, alert, 52-year-old male who appears his stated age and is in no acute respiratory distress. SKIN: Focused skin assessment warm/dry. HEAD: Atraumatic. Normocephalic. EYES: Pupils equal and round. Pallor of the lower lids noted. ENT: No nasal bleeding or discharge. Slightly dry mucous membranes. NECK: Trachea midline. No JVD. CARDIOVASCULAR: Regular, tachycardic with a heart rate over 5. RESPIRATORY: No accessory muscle use. Clear to auscultation. Breath sounds equal bilaterally. GASTROINTESTINAL: Abdomen soft, non-tender, nondistended. No guarding or rigidity. No rebound tenderness. Rectal: Melena on exam that is grossly guaiac positive. MUSCULOSKELETAL: No obvious deformities. No clubbing. No cyanosis. No edema. NEUROLOGICAL: Awake and alert. No obvious cranial nerve deficits. Motor grossly within normal limits. Normal speech. PSYCHIATRIC: Appropriate mood and affect; insight and judgment normal. Data Data Last Documented VS Vital Signs Date Time Temp Pulse Resp B/P (MAP) Pulse Ox O2 Delivery O2 Flow Rate FiO2 02/20/18 18:07 98.6 109 17 153/90 (111) 100 Orders Orders Complete Blood Count With Diff (02/20/18 18:09) Comprehensive Metabolic Panel (02/20/18 18:09) Urinalysis - C+S If Indicated (02/20/18 18:09) Prothrombin Time / Inr (Pt) (02/20/18 19:05) Act Partial Throm Time (Ptt) (02/20/18 19:05) Type And Screen (02/20/18 19:05) Ecg Monitoring (02/20/18 19:05) Iv Access Insert/Monitor (02/20/18 19:05) Oximetry (02/20/18 19:05) Ondansetron Inj (Zofran Inj) (02/20/18 19:15) Sodium Chlor 0.9% 1000 Ml Inj (Ns 1000 M (02/20/18 19:05) Sodium Chloride 0.9% Flush (Ns Flush) (02/20/18 19:15) Sodium Chloride 0.9... W/Pantoprazole In (02/20/18 19:05) Sodium Chloride 0.9... W/Pantoprazole In (02/20/18 19:05) Morphine Inj (Morphine Inj) (02/20/18 19:15) Admit Order (Ed Use Only) (02/20/18 20:14) Labs Laboratory Tests Test 02/20/18 18:50 02/20/18 19:50 White Blood Count 9.8 TH/MM3 Red Blood Count 3.42 MIL/MM3 Hemoglobin 9.2 GM/DL Hematocrit 28.4 % Mean Corpuscular Volume 82.9 FL Mean Corpuscular Hemoglobin 26.9 PG Mean Corpuscular Hemoglobin Concent 32.4 % Red Cell Distribution Width 28.8 % Platelet Count 410 TH/MM3 Mean Platelet Volume 8.0 FL Neutrophils (%) (Auto) 75.0 % Lymphocytes (%) (Auto) 11.9 % Monocytes (%) (Auto) 10.3 % Eosinophils (%) (Auto) 2.3 % Basophils (%) (Auto) 0.5 % Neutrophils # (Auto) 7.3 TH/MM3 Lymphocytes # (Auto) 1.2 TH/MM3 Monocytes # (Auto) 1.0 TH/MM3 Eosinophils # (Auto) 0.2 TH/MM3 Basophils # (Auto) 0.0 TH/MM3 CBC Comment AUTO DIFF Differential Comment AUTO DIFF CONFIRMED Target Cells 1+ Ovalocytes 1+ Blood Urea Nitrogen 16 MG/DL Creatinine 1.17 MG/DL Random Glucose 98 MG/DL Total Protein 9.0 GM/DL Albumin 3.3 GM/DL Calcium Level 9.1 MG/DL Alkaline Phosphatase 91 U/L Aspartate Amino Transf (AST/SGOT) 26 U/L Alanine Aminotransferase (ALT/SGPT) 24 U/L Total Bilirubin 0.3 MG/DL Sodium Level 137 MEQ/L Potassium Level 4.0 MEQ/L Chloride Level 102 MEQ/L Carbon Dioxide Level 23.9 MEQ/L Anion Gap 11 MEQ/L Estimat Glomerular Filtration Rate 79 ML/MIN MDM Medical Decision Making Medical Screen Exam Complete: Yes Emergency Medical Condition: Yes Medical Record Reviewed: Yes Interpretation(s) Laboratory Tests Test 02/20/18 18:50 02/20/18 19:50 White Blood Count 9.8 TH/MM3 Red Blood Count 3.42 MIL/MM3 Hemoglobin 9.2 GM/DL Hematocrit 28.4 % Mean Corpuscular Volume 82.9 FL Mean Corpuscular Hemoglobin 26.9 PG Mean Corpuscular Hemoglobin Concent 32.4 % Red Cell Distribution Width 28.8 % Platelet Count 410 TH/MM3 Mean Platelet Volume 8.0 FL Neutrophils (%) (Auto) 75.0 % Lymphocytes (%) (Auto) 11.9 % Monocytes (%) (Auto) 10.3 % Eosinophils (%) (Auto) 2.3 % Basophils (%) (Auto) 0.5 % Neutrophils # (Auto) 7.3 TH/MM3 Lymphocytes # (Auto) 1.2 TH/MM3 Monocytes # (Auto) 1.0 TH/MM3 Eosinophils # (Auto) 0.2 TH/MM3 Basophils # (Auto) 0.0 TH/MM3 CBC Comment AUTO DIFF Differential Comment AUTO DIFF CONFIRMED Target Cells 1+ Ovalocytes 1+ Blood Urea Nitrogen 16 MG/DL Creatinine 1.17 MG/DL Random Glucose 98 MG/DL Total Protein 9.0 GM/DL Albumin 3.3 GM/DL Calcium Level 9.1 MG/DL Alkaline Phosphatase 91 U/L Aspartate Amino Transf (AST/SGOT) 26 U/L Alanine Aminotransferase (ALT/SGPT) 24 U/L Total Bilirubin 0.3 MG/DL Sodium Level 137 MEQ/L Potassium Level 4.0 MEQ/L Chloride Level 102 MEQ/L Carbon Dioxide Level 23.9 MEQ/L Anion Gap 11 MEQ/L Estimat Glomerular Filtration Rate 79 ML/MIN Differential Diagnosis differential diagnosis includes upper GI bleed, malignant gastric ulcer, symptomatic anemia, azotemia, lower GI bleed, coagulopathy. Narrative Course IV was established, labs are drawn and sent, and the patient was placed on cardiac telemetry monitoring and continuous pulse oximetry monitoring. The patient was administered Protonix IV and then placed on a Protonix drip. Rectal exam reveals melena that is grossly guaiac positive. I reviewed the EMR , the patient had a clip placed on the bleeding part of the malignant gastric ulcer in October by Dr. Fragoso. Type and screen was sent to lab. The patient was also administered Zofran, morphine, and IV fluids. Patient's hemoglobin is 9.2. The patient appears to have an upper GI bleed, may be secondary to malignant gastric ulcer. The patient be 23 hour observation to the medical service, may benefit from GI consultation for possible endoscopy. HemaPrompt Point of Care Internal Pos. & Neg. Controls: Passed Fecal Specimen Occult Blood: Positive Physician Communication Physician Communication The on-call medical service was paged for admission. I discussed the patient Dr. Fields who agrees with 23 hour observation. Diagnosis Primary Impression: Malignant gastric ulcer Additional Impression: GI bleed Qualified Codes: K92.1 - Melena Admitting Information Admitting Physician Requests: Observation Condition: Stable Michael Lorenzana MD Feb 20, 2018 19:11
[2018-02-20] MEDS ORDERED: ONDANSETRON HCL 4 MG/2 ML VIAL IVP ONE (19:15)
[2018-02-20] MEDS ORDERED: MORPHINE SULFATE 4 MG/ML INJ IV PUSH ONE (19:15)
[2018-02-20] MEDS ORDERED: SODIUM CHLORIDE 0.9% FLUSH 10 ML FLUSH IVF PRN (19:15)
[2018-02-20 19:29] LABS: AUTOMATED NEUTROPHIL # 7.3 TH/MM3 (1.8-7.7); BASOPHIL % 0.5 % (0.0-2.0); EOSINOPHIL # 0.2 TH/MM3 (0-0.4); EOSINOPHIL % 2.3 % (0.0-4.0); HEMATOCRIT 28.4 % (39.0-51.0); HEMOGLOBIN 9.2 GM/DL (13.0-17.0); LYMPH % 11.9 % (9.0-44.0); LYMPHOCYTE # 1.2 TH/MM3 (1.0-4.8); MEAN CELL VOLUME 82.9 FL (80.0-100.0); MEAN CORPUSCULAR HEMOGLOBIN 26.9 PG (27.0-34.0); MEAN CORPUSCULAR HGB CONC 32.4 % (32.0-36.0); MONO % 10.3 % (0.0-8.0); PLATELET COUNT 410 TH/MM3 (150-450); RED BLOOD COUNT 3.42 MIL/MM3 (4.50-5.90); RED CELL DISTRIBUTION WIDTH 28.8 % (11.6-17.2); WHITE BLOOD COUNT 9.8 TH/MM3 (4.0-11.0)
[2018-02-20 19:44] LABS: ALBUMIN 3.3 GM/DL (3.4-5.0); AST (GOT) 26 U/L (15-37); BICARBONATE 23.9 MEQ/L (21.0-32.0); BLOOD UREA NITROGEN 16 MG/DL (7-18); CALCIUM 9.1 MG/DL (8.5-10.1); CHLORIDE 102 MEQ/L (98-107); CREATININE 1.17 MG/DL (0.60-1.30); GLOMERULAR FILTRATION RATE 79 ML/MIN (>89); GLUCOSE,RANDOM 98 MG/DL (74-106); SODIUM (NA) 137 MEQ/L (136-145)
[2018-02-20 19:46] LABS: ALT (GPT) 24 U/L (12-78)
[2018-02-20 19:48] LABS: ALKALINE PHOSPHATASE 91 U/L (45-117); TOTAL BILIRUBIN ADULT 0.3 MG/DL (0.2-1.0)
[2018-02-20] MEDS: PANTOPRAZOLE INJ 80 MG in SODIUM CHLORIDE 0.9% INJ 100 ML IV SCH (19:48)
[2018-02-20 20:12] LABS: OVALOCYTES 1+ (NORMAL); TARGET CELLS 1+ (NORMAL)
[2018-02-20] MEDS ORDERED: BISACODYL 10 MG SUPP RECTAL PRN (20:15)
[2018-02-20] MEDS ORDERED: SODIUM CHLORIDE 0.9% FLUSH 10 ML FLUSH IV FLUSH PRN (20:15)
[2018-02-20] MEDS ORDERED: SENNOSIDES 8.6 MG TAB PO PRN (20:15)
[2018-02-20] MEDS ORDERED: ACETAMINOPHEN 325 MG TAB PO PRN (20:15)
[2018-02-20] MEDS ORDERED: MAGNESIUM HYDROXIDE SUSP 30 ML CUP PO PRN (20:15)
[2018-02-20] MEDS ORDERED: LACTULOSE SYRUP 20 GM/30 ML CUP PO PRN (20:15)
--- NOTE | 2018-02-20 20:19 | HHI.HP ---
[facility] Service [facility] Primary Care Physician Unknown Admission Diagnosis upper GI bleed, melena gastric ulcer, symptomatic anemia Diagnoses: (1) GI bleed Diagnosis: Principal (2) Malignant gastric ulcer Diagnosis: Principal (3) Anemia Diagnosis: Principal Travel History International Travel<30 Days: No Contact w/Intl Traveler <30 Da: No Traveled to Known Affected Are: No History of Present Illness This is a 52-year-old male with a PMH of HTN, Malignant Gastric Ulcer, h/o GI Bleed and Tobacco Abuse who presented to the ER with complaints of hematemesis and melena for approximately 1wk. H/o similar symptoms for which he was admitted 11/22-11/24/17, s/p EGD by Dr. Fragoso with successful clipping and hemostasis of malignant ulcer. Follows with [facility] in [place], [facility] he receives regular transfusions of iron due to ongoing anemia. Reports baseline Hgb 8-9. On arrival, BP 153/90, HR 109, O2 sat 100% RA, Afebrile. Hemoglobin 9.2. Chemistry essentially unremarkable except for GFR 79. INR 1.0. Hemoccult + on exam. Started on Protonix gtt in ER. Review of Systems Except as stated in HPI: all other systems reviewed are Neg ROS: 14 point review of systems otherwise negative. Past Family Social History Past Medical History PMH: HTN, Malignant Gastric Ulcer, h/o GI Bleed and Tobacco Abuse Past Surgical History PAST SURGICAL HISTORY: Bilateral Knee Surgery, Back Surgery Allergies: Coded Allergies: latex (Verified Adverse Reaction, Unknown, 02/20/18) Family History PAST FAMILY HISTORY: Reviewed. No h/o DM or CAD Social History PAST SOCIAL HISTORY: Positive for tobacco and Marijuana. Negative for alcohol. Physical Exam Vital Signs Vital Signs Date Time Temp Pulse Resp B/P (MAP) Pulse Ox O2 Delivery O2 Flow Rate FiO2 02/20/18 18:07 98.6 109 17 153/90 (111) 100 Physical Exam PE: GENERAL: Pleasant middle-aged black male in no acute distress. HEENT: PERRLA, EOMI. No scleral icterus or conjunctival pallor. No lid lag or facial droop. CARDIOVASCULAR: Regular rate and rhythm. No obvious murmurs to auscultation. No chest tenderness to palpation. RESPIRATORY: No obvious rhonchi or wheezing. Clear to auscultation. Breath sounds equal bilaterally. GASTROINTESTINAL: Abdomen soft, epigastric tenderness to palpation, nondistended. BS normal. MUSCULOSKELETAL: Extremities without clubbing, cyanosis, or edema. No obvious deformities. NEUROLOGICAL: Awake, alert and oriented x4. No focal neurologic deficits. Moving both upper and lower extremities spontaneously. Laboratory Laboratory Tests Test 02/20/18 18:50 02/20/18 19:50 White Blood Count 9.8 Red Blood Count 3.42 Hemoglobin 9.2 Hematocrit 28.4 Mean Corpuscular Volume 82.9 Mean Corpuscular Hemoglobin 26.9 Mean Corpuscular Hemoglobin Concent 32.4 Red Cell Distribution Width 28.8 Platelet Count 410 Mean Platelet Volume 8.0 Neutrophils (%) (Auto) 75.0 Lymphocytes (%) (Auto) 11.9 Monocytes (%) (Auto) 10.3 Eosinophils (%) (Auto) 2.3 Basophils (%) (Auto) 0.5 Neutrophils # (Auto) 7.3 Lymphocytes # (Auto) 1.2 Monocytes # (Auto) 1.0 Eosinophils # (Auto) 0.2 Basophils # (Auto) 0.0 CBC Comment AUTO DIFF Differential Comment AUTO DIFF CONFIRMED Target Cells 1+ Ovalocytes 1+ Blood Urea Nitrogen 16 Creatinine 1.17 Random Glucose 98 Total Protein 9.0 Albumin 3.3 Calcium Level 9.1 Alkaline Phosphatase 91 Aspartate Amino Transf (AST/SGOT) 26 Alanine Aminotransferase (ALT/SGPT) 24 Total Bilirubin 0.3 Sodium Level 137 Potassium Level 4.0 Chloride Level 102 Carbon Dioxide Level 23.9 Anion Gap 11 Estimat Glomerular Filtration Rate 79 Result Diagram: 02/20/180 02/20/181849 Caprini VTE Risk Assessment Caprini VTE Risk Assessment: No/Low Risk (score <= 1) VTE Pharm Contraindication: Active bleeding Caprini Risk Assessment Model Point Value = 1 Point Value = 2 Point Value = 3 Point Value = 5 Age 41-60 Minor surgery BMI > 25 kg/m2 Swollen legs Varicose veins or History of unexplained or recurrent spontaneous Oral contraceptives or hormone replacement Sepsis (< 1 month) Serious lung disease, including pneumonia (< 1 month) Abnormal pulmonary function Acute myocardial infarction Congestive heart failure (< 1 month) History of inflammatory bowel disease Medical patient at bed rest Age 61-74 Arthroscopic surgery Major open surgery (> 45 min) Laparoscopic surgery (> 45 min) Malignancy Confined to bed (> 72 hours) Immobilizing plaster cast Central venous access Age >= 75 History of VTE Family history of VTE Factor V Leiden Prothrombin [id number] Lupus anticoagulant Anticardiolipin antibodies Elevated serum homocysteine Heparin-induced thrombocytopenia Other congenital or acquired thrombophilia Stroke (< 1 month) Elective arthroplasty Hip, pelvis, or leg fracture Acute spinal cord injury (< 1 month) Prophylaxis Regimen Total Risk Factor Score Risk Level Prophylaxis Regimen 0-1 Low Early ambulation 2 Moderate Order ONE of the following: *Sequential Compression Device (SCD) *Heparin 5000 units SQ BID 3-4 Higher Order ONE of the following medications: *Heparin 5000 units SQ TID *Enoxaparin/Lovenox 40 mg SQ daily (WT < 150 kg, CrCl > 30 mL/min) *Enoxaparin/Lovenox 30 mg SQ daily (WT < 150 kg, CrCl > 10-29 mL/min) *Enoxaparin/Lovenox 30 mg SQ BID (WT < 150 kg, CrCl > 30 mL/min) AND/OR *Sequential Compression Device (SCD) 5 or more Highest Order ONE of the following medications: *Heparin 5000 units SQ TID (Preferred with Epidurals) *Enoxaparin/Lovenox 40 mg SQ daily (WT < 150 kg, CrCl > 30 mL/min) *Enoxaparin/Lovenox 30 mg SQ daily (WT < 150 kg, CrCl > 10-29 mL/min) *Enoxaparin/Lovenox 30 mg SQ BID (WT < 150 kg, CrCl > 30 mL/min) AND *Sequential Compression Device (SCD) Assessment and Plan Problem List: (1) GI bleed ICD Code: K92.2 - Gastrointestinal hemorrhage, unspecified Status: Acute (2) Malignant gastric ulcer ICD Code: C16.9 - Malignant neoplasm of stomach, unspecified (3) Anemia ICD Code: D64.9 - Anemia, unspecified Assessment and Plan A/P: 1. GI Bleed: Likely secondary to underlying gastric ulcer, h/o similar s/p clipping by Dr. Fragoso, now w/ hematemesis/melena, Hemoccult +. Protonix gtt, NPO, Consult GI for further evaluation/likely EGD in am. Analgesics/antiemetics as needed. 2. Anemia: Secondary to above, Hgb 9.2, will repeat Hgb/Hct at midnight to eval for need to transfuse, suspect Hgb will drop further and likely require transfusion. Monitor vitals closely. 3. Malignant Gastric Ulcer: Follows w/ Oncologist in [place], previously on Chemo, follow up w/ Oncologist as outpatient. 4. DVT Prophylaxis: Pharmacologic contraindication secondary to active bleeding. 5. Social work for d/c planning as needed. 6. Case discussed w/ ER physician at length, labs/records/imaging reviewed by me. Problem Qualifiers (1) GI bleed: Qualified Codes: K92.1 - Eva Pang MD Feb 20, 2018 20:19
[2018-02-20 20:24] VITALS: BP 146/83; PULSE 84; RESP 16; O2SAT 100
[2018-02-20] MEDS: SODIUM CHLOR 0.9% 1000 ML INJ 1,000 ML IV SCH (20:49)
[2018-02-20] MEDS: MORPHINE SULFATE 2 MG/ML INJ IV PUSH PRN (20:50)
[2018-02-20] MEDS: SODIUM CHLORIDE 0.9% FLUSH 10 ML FLUSH IV FLUSH SCH (21:00)
[2018-02-20] MEDS: DOCUSATE SODIUM 50 MG/SENNA 8.6 MG TAB PO SCH (21:00)
[2018-02-20 21:02] LABS: PROTHROMBIN TIME - PATIENT 10.6 SEC (9.8-11.6)
[2018-02-20 21:39] VITALS: BP 159/93; PULSE 84; RESP 16; TEMP 98; O2SAT 99
[2018-02-20 21:55] VITALS: BP 134/85; PULSE 82; RESP 13; TEMP 98.1; O2SAT 99
[2018-02-20 22:49] VITALS: BP 162/91; PULSE 81; RESP 20; TEMP 98.4; O2SAT 100
[2018-02-21] VITALS (10 sets, daily range): BP systolic 124–198; BP diastolic 73–94; PULSE 70–83; RESP 16–18; TEMP 97.5–99.2; O2SAT 96–99
[2018-02-21] MEDS: MORPHINE SULFATE 2 MG/ML INJ IV PUSH PRN (00:16)
[2018-02-21] MEDS: PANTOPRAZOLE INJ 80 MG in SODIUM CHLORIDE 0.9% INJ 100 ML IV SCH ×2 (04:05→16:50)
[2018-02-21 04:20] LABS: AUTOMATED NEUTROPHIL # 3.5 TH/MM3 (1.8-7.7); BASOPHIL % 0.8 % (0.0-2.0); EOSINOPHIL # 0.4 TH/MM3 (0-0.4); EOSINOPHIL % 7.5 % (0.0-4.0); HEMATOCRIT 23.3 % (39.0-51.0); HEMOGLOBIN 7.5 GM/DL (13.0-17.0); LYMPH % 21.2 % (9.0-44.0); LYMPHOCYTE # 1.2 TH/MM3 (1.0-4.8); MEAN CELL VOLUME 82.9 FL (80.0-100.0); MEAN CORPUSCULAR HEMOGLOBIN 26.7 PG (27.0-34.0); MEAN CORPUSCULAR HGB CONC 32.2 % (32.0-36.0); MEAN PLATELET VOLUME 7.5 FL (7.0-11.0); MONO % 9.7 % (0.0-8.0); MONOCYTE # 0.6 TH/MM3 (0-0.9); NEUT % 60.8 % (16.0-70.0); PLATELET COUNT 230 TH/MM3 (150-450); WHITE BLOOD COUNT 5.7 TH/MM3 (4.0-11.0)
[2018-02-21 05:08] LABS: ACANTHOCYTES OCC (NORMAL)
[2018-02-21 07:51] LABS: ALBUMIN 2.7 GM/DL (3.4-5.0); ALKALINE PHOSPHATASE 72 U/L (45-117); ALT (GPT) 17 U/L (12-78); AST (GOT) 27 U/L (15-37); BICARBONATE 22.6 MEQ/L (21.0-32.0); BLOOD UREA NITROGEN 12 MG/DL (7-18); CALCIUM 8.2 MG/DL (8.5-10.1); CHLORIDE 106 MEQ/L (98-107); CREATININE 0.94 MG/DL (0.60-1.30); GLOMERULAR FILTRATION RATE 102 ML/MIN (>89); GLUCOSE,RANDOM 71 MG/DL (74-106); SODIUM (NA) 138 MEQ/L (136-145); TOTAL BILIRUBIN ADULT 0.8 MG/DL (0.2-1.0); TOTAL PROTEIN 7.2 GM/DL (6.4-8.2)
--- NOTE | 2018-02-21 08:26 | PD.CONS ---
HPI History of Present Illness This is a 52 year old M with PMH significant for HTN, malignant gastric ulcer with history og GIB, nicotine dependence. Pt presented to the ER last night with complaints of hematemesis, intermittent for the past week with associated melena. Reports this has been fairly constant for the past week. Also complaining of epigastric LUQ pain that has been progressively getting worse. Pts oncologist is Dr. Corbin Childress in [place], [place]. He states he was supposed to be started on radiation treatment last Thursday but was not feeling well enough. Denies any plans for surgical resection or chemotherapy at this time. States does receive iron transfusions when needed. Also complaining of weight loss, he is unsure of how much but thinks around 10-15 pounds over the last couple months. Pt has been previously evaluated by our service for the same. EGD (11/22/17)--> Normal esophagus. Normal duodenal mucosa and second portion of the duodenum. Large malignant ulcer in the gastric body with intermittent oozing of blood from visible vessel, complete hemostasis was achieved by placing single clip on bleeding site. Pt states he also had a colonoscopy done but there is no record of this. Hgb dropped from 9.2 to 7.5 overnight. Denies ETOH. Admits to smoking and marijuana use. (Ewa Varela) PFSH Past Medical History PMH: HTN, Malignant Gastric Ulcer, h/o GI Bleed and Tobacco Abuse Past Surgical History PAST SURGICAL HISTORY: Bilateral Knee Surgery, Back Surgery (Ewa Varela) Coded Allergies: latex (Verified Adverse Reaction, Unknown, 02/20/18) Family History PAST FAMILY HISTORY: Reviewed. No h/o DM or CAD Social History PAST SOCIAL HISTORY: Positive for tobacco and Marijuana. Negative for alcohol. (Ewa Varela) Review of Systems Gastrointestinal: COMPLAINS OF: Abdominal pain, Black stools, Nausea, Vomiting , Heartburn, Hematemesis, DENIES: Bloody stools, Constipation, Diarrhea, Difficulty Swallowing, Odynophagia, Swelling of Abdomen (Ewa Varela) GI Exam Vitals I&O Vital Signs Date Time Temp Pulse Resp B/P (MAP) Pulse Ox O2 Delivery O2 Flow Rate FiO2 02/21/18 07:35 98.2 79 18 129/76 (93) 96 02/21/18 04:04 99.2 75 18 165/90 (115) 99 02/21/18 00:43 98.6 81 16 142/85 (104) 98 02/20/18 22:54 02/20/18 22:49 98.4 81 20 162/91 (114) 100 02/20/18 21:55 98.1 82 13 134/85 99 02/20/18 21:39 98.0 84 16 159/93 99 02/20/18 20:24 84 16 146/83 (104) 100 Room Air 02/20/18 18:07 98.6 109 17 153/90 (111) 100 I/O 02/20/18 02/20/18 02/20/18 02/21/18 02/21/18 02/21/18 07:00 15:00 23:00 07:00 15:00 23:00 Intake Total 1035 ml 400 ml Balance 1035 ml 400 ml Intake IV Total 1035 ml Packed Cells 400 ml Laboratory Test 02/20/18 18:50 02/20/18 19:50 02/21/18 03:19 02/21/18 06:15 White Blood Count 9.8 TH/MM3 5.7 TH/MM3 Red Blood Count 3.42 MIL/MM3 2.80 MIL/MM3 Hemoglobin 9.2 GM/DL 7.5 GM/DL Hematocrit 28.4 % 23.3 % Mean Corpuscular Volume 82.9 FL 82.9 FL Mean Corpuscular Hemoglobin 26.9 PG 26.7 PG Mean Corpuscular Hemoglobin Concent 32.4 % 32.2 % Red Cell Distribution Width 28.8 % 27.0 % Platelet Count 410 TH/MM3 230 TH/MM3 Mean Platelet Volume 8.0 FL 7.5 FL Neutrophils (%) (Auto) 75.0 % 60.8 % Lymphocytes (%) (Auto) 11.9 % 21.2 % Monocytes (%) (Auto) 10.3 % 9.7 % Eosinophils (%) (Auto) 2.3 % 7.5 % Basophils (%) (Auto) 0.5 % 0.8 % Neutrophils # (Auto) 7.3 TH/MM3 3.5 TH/MM3 Lymphocytes # (Auto) 1.2 TH/MM3 1.2 TH/MM3 Monocytes # (Auto) 1.0 TH/MM3 0.6 TH/MM3 Eosinophils # (Auto) 0.2 TH/MM3 0.4 TH/MM3 Basophils # (Auto) 0.0 TH/MM3 0.0 TH/MM3 CBC Comment AUTO DIFF AUTO DIFF Differential Comment AUTO DIFF CONFIRMED AUTO DIFF CONFIRMED Target Cells 1+ Ovalocytes 1+ Blood Urea Nitrogen 16 MG/DL 12 MG/DL Creatinine 1.17 MG/DL 0.94 MG/DL Random Glucose 98 MG/DL 71 MG/DL Total Protein 9.0 GM/DL 7.2 GM/DL Albumin 3.3 GM/DL 2.7 GM/DL Calcium Level 9.1 MG/DL 8.2 MG/DL Alkaline Phosphatase 91 U/L 72 U/L Aspartate Amino Transf (AST/SGOT) 26 U/L 27 U/L Alanine Aminotransferase (ALT/SGPT) 24 U/L 17 U/L Total Bilirubin 0.3 MG/DL 0.8 MG/DL Sodium Level 137 MEQ/L 138 MEQ/L Potassium Level 4.0 MEQ/L 4.0 MEQ/L Chloride Level 102 MEQ/L 106 MEQ/L Carbon Dioxide Level 23.9 MEQ/L 22.6 MEQ/L Anion Gap 11 MEQ/L 9 MEQ/L Estimat Glomerular Filtration Rate 79 ML/MIN 102 ML/MIN Prothrombin Time 10.6 SEC Prothromb Time International Ratio 1.0 RATIO Activated Partial Thromboplast Time 25.4 SEC Platelet Estimate NORMAL Platelet Morphology Comment NORMAL Basophilic Stippling FAINT Acanthocytes OCC Physical Examination HEENT: Normocephalic; atraumatic CHEST: Even/unlabored CARDIAC: RRR ABDOMEN: Soft, nondistended, epigastric/LUQ TTP; bowel sounds active EXTREMITIES: No clubbing, cyanosis, or edema. SKIN: Normal; no rash; no jaundice. MASTER BAKER: No focal deficits; alert and oriented times three. (Ewa Varela) Assessment and Plan Plan Assessment: - UGI bleed- reports of hematemesis and melena x 1 week with epigastric/LUQ abdominal pain. History of malignant gastric ulcer with bleeding. Recently evaluated by our service here. EGD (11/22/17)--> Normal esophagus. Normal duodenal mucosa and second portion of the duodenum. Large malignant ulcer in the gastric body with intermittent oozing of blood from visible vessel, complete hemostasis was achieved by placing single clip on bleeding site. H/H dropped from 9.2/28.4 yesterday to 7.5/23.3 - Malignant gastric ulcer- follows oncologist in [place]- Dr. Corbin Childress was supposed to be started on radiation tx last Thursday but was not feeling well enough. Denies plans for resection or chemo. Plan: EGD today Obtain consent Keep NPO Protonix gtt Monitor H/H Further recommendations based on findings of above Pt has been seen and examined by myself and Dr. Sharpe and this note is written on her behalf (Ewa Varela) Physician Comments seen, examined agree with above egd done -large ulcerated mass, clip still present , s/p APC and epinephrine injection- high risk for recurrent bleeding consult oncology-may need radiation soon consult IR for angiogram embolization ct abdomen/pelvis transfuse 2 unit soft prbc npo -may have ice chips (Mellisa Sharpe MD) Ewa Varela Feb 21, 2018 08:26 Mellisa Sharpe MD Feb 21, 2018 12:16
[2018-02-21] MEDS: DOCUSATE SODIUM 50 MG/SENNA 8.6 MG TAB PO SCH ×2 (09:00→22:53)
[2018-02-21] MEDS: SODIUM CHLOR 0.9% 1000 ML INJ 1,000 ML IV SCH ×2 (10:26→16:28)
[2018-02-21] MEDS: SODIUM CHLORIDE 0.9% FLUSH 10 ML FLUSH IV FLUSH SCH ×2 (10:26→22:53)
[2018-02-21] MEDS ORDERED: PROPOFOL 200 MG/20 ML AMP IV ONE (12:00)
[2018-02-21] MEDS ORDERED: LACTATED RINGER'S 1000 ML INJ 1,000 ML IV ONE (12:00)
[2018-02-21] MEDS ORDERED: LIDOCAINE HCL 1% PF 5 ML SYRINGE OTHER ONE (12:00)
--- NOTE | 2018-02-21 12:29 | GIPROC ---
[facility] [address] [facility]. [facility], [address] EGD PROCEDURE REPORT EXAM DATE: 02/21/2018 PATIENT NAME: Lanre Burt MR #: [id number] BIRTHDATE: 1965 ATTENDING: Mellisa Sharpe MD ORDER #: [id number] DIGITAL MEDIA PRODUCER: Yue Lopez and Justin Haskins STATUS: inpatient INDICATIONS: The patient is a 52 yr old male here for an EGD due to gi bleeding history of gastric cancer PROCEDURE PERFORMED: EGD w/ biopsy MEDICATIONS: None and Per Anesthesia. TOPICAL ANESTHETIC: none CONSENT: The patient understands the risks and benefits of the procedure and understands that these risks include, but are not limited to: sedation, allergic reaction, infection, perforation and/or bleeding. Alternative means of evaluation and treatment include, among others: physical exam, x-rays, and/or surgical intervention. The patient elects to proceed with this endoscopic procedure. medical equipment was checked for proper function. Hand hygiene and appropriate measures for infection prevention was taken. After the risks, benefits and alternatives of the procedure were thoroughly explained, Informed consent was verified, confirmed and timeout was successfully executed by the treatment team. The patient was anesthetized with topical anesthesia and the Acceler[employer] [id number] endoscope was introduced through the mouth and advanced to the second portion of the duodenum. Retroflexed views revealed a hiatal hernia The gastroscope was then slowly withdrawn and removed. Large ulcerated mass in gastric body, extending to fundus, no active bleeding seen previous appied clip in place 6 cc of epinephrine 1:10,000 injected, APC treatment done of the mass 200 cc of gastric fluid suctioned. ADVERSE EVENTS: There were no complications. IMPRESSIONS: 1. Large ulcerated mass in gastric body, extending to fundus, no active bleeding seen previous appied clip in place 6 cc of epinephrine 1:10,000 injected, APC treatment done of the mass 200 cc of gastric fluid suctioned 2. Retroflexed views revealed a hiatal hernia RECOMMENDATIONS: 1. Anti-reflux regimen 2. Npo except medications PPI IV monitor hb/ht closely consult oncology-possible starting radiation earlier transfuse [address] abdomen/pelvis consult IR for angiogram/embolisation high risk of reblleding no role in aditional endoscopic treatment due to size and extent of tumor PATIENT CONDITION: stable DISPOSITION: Inpatient REPEAT EXAM: Return 8 weeks EGD Mellisa Sharpe MD eSigned: Mellisa Sharpe MD 02/21/2018 12:29 PM cc: PATIENT NAME: Lanre Burt Ruperto MR#: [id number]
[2018-02-21] MEDS ORDERED: DO NOT ADM ANY ANTICOAGULANT DRUGS PRN (13:00)
[2018-02-21] MEDS ORDERED: DIATRIZOATE MEGLUM/DIATRIZOATE SOD 9 ML CUP PO ONE (13:00)
[2018-02-21] MEDS: DEXT 5%-NACL 0.9% 1000 ML INJ 1,000 ML IV SCH (14:05)
--- NOTE | 2018-02-21 15:26 | HHI.PR ---
Subjective Remarks Pt complains of epigastric pain 07/09. mild nausea but no vomiting. No CP/SOB Objective Vitals Vital Signs Date Time Temp Pulse Resp B/P (MAP) Pulse Ox O2 Delivery O2 Flow Rate FiO2 02/21/18 12:35 98.2 80 16 96 Room Air 02/21/18 12:30 85 16 119/68 (85) 95 Room Air 02/21/18 12:15 89 15 134/72 (92) 94 Room Air 02/21/18 12:09 98.6 95 15 151/90 (110) 100 Nasal Cannula 3 02/21/18 07:35 98.2 79 18 129/76 (93) 96 02/21/18 04:04 99.2 75 18 165/90 (115) 99 02/21/18 00:43 98.6 81 16 142/85 (104) 98 02/20/18 22:54 02/20/18 22:49 98.4 81 20 162/91 (114) 100 02/20/18 21:55 98.1 82 13 134/85 99 02/20/18 21:39 98.0 84 16 159/93 99 02/20/18 20:24 84 16 146/83 (104) 100 Room Air 02/20/18 18:07 98.6 109 17 153/90 (111) 100 I/O 02/20/18 02/20/18 02/20/18 02/21/18 02/21/18 02/21/18 07:00 15:00 23:00 07:00 15:00 23:00 Intake Total 1035 ml 400 ml Balance 1035 ml 400 ml Intake IV Total 1035 ml Packed Cells 400 ml # Voids 0 Result Diagram: 02/21/18 0319 02/21/18 0615 Objective Remarks GENERAL: AA male laying in his right HEENT: EOMI. CARDIOVASCULAR: Regular rate and rhythm. RESPIRATORY: No obvious rhonchi or wheezing. Clear to auscultation. GASTROINTESTINAL: Abdomen soft, epigastric tenderness to palpation, nondistended. BS normal. MUSCULOSKELETAL: Extremities without edema. No obvious deformities. NEUROLOGICAL: Awake, alert and oriented x4. laying on his right, appears uncomfortable, position A/P Problem List: (1) GI bleed ICD Code: K92.2 - Gastrointestinal hemorrhage, unspecified Status: Acute (2) Malignant gastric ulcer ICD Code: C16.9 - Malignant neoplasm of stomach, unspecified (3) Anemia ICD Code: D64.9 - Anemia, unspecified Assessment and Plan 1. GI Bleed: h/o similar 11/22/17 s/p clipping by Dr. Fragoso. s/p EGD today w findings of Large ulcerated mass in gastric body, extending to fundus w no active bleeding, previous appied clip in place; s/p epinephrine injection and APC treatment done of the mass. s/p 1 unit PRBC and GI recommend giving an additional 2 units. I will go ahead and place order. IR consulted for embolization and GI also consulted med onc. Protonix gtt, NPO. Analgesics/ antiemetics as needed. 2. Anemia: Secondary to above, down to Hgb 7.4, monitor closely. Transfuse 2 additional units PRBC. 3. Malignant Gastric Ulcer: Follows w/ Oncologist in [place], previously on Chemo, Oncology consulted. 4. DVT Prophylaxis: Pharmacologic contraindication secondary to active bleeding. Discharge Planning I have switched status to inpatient status. charge hand notified. Transfer to med/ surg Transfuse 2 units PRBC per GI recs. give 1 time dose morphine now as pt is in 8/10 pain. monitor H&H q6hrs and transfuse if Hb <7 Problem Qualifiers (1) GI bleed: Qualified Codes: K92.1 - Princess Schwartz MD Feb 21, 2018 15:26
[2018-02-21] MEDS ORDERED: MORPHINE SULFATE 2 MG/ML INJ IV PUSH ONE (15:30)
[2018-02-21] MEDS ORDERED: diphenhydrAMINE HCL 25 MG CAP PO PRN (16:00)
[2018-02-21] MEDS ORDERED: ACETAMINOPHEN 325 MG TAB PO PRN (16:00)
[2018-02-21 18:20] LABS: HEMATOCRIT 23.8 % (39.0-51.0); HEMOGLOBIN 7.7 GM/DL (13.0-17.0)
[2018-02-21] MEDS ORDERED: IOHEXOL 350 MG/ML 10 ML VIAL (for RAD DIAG) IVCONTRAST ONE (18:21)
--- NOTE | 2018-02-21 18:27 | MB ---
cc: Norma Moreira MD DATE: 02/21/2018 CHIEF COMPLAINT: 1. Metastatic gastrointestinal stromal tumor. 2. Anemia. 3. Iron deficiency. 4. GI bleed. HISTORY OF PRESENT ILLNESS: Mr. No is a 52-year-old gentleman with a history of hypertension, gastrointestinal stromal tumor, GI bleed and tobacco abuse. He was admitted to the hospital on 02/20 with hematemesis and melena of 1-week duration. He was previously hospitalized from 11/22/2017-11/24/2017 for the same symptoms. At that time, he had an EGD performed by Dr. Fragoso with clipping and hemostasis of the ulcer. For his gastrointestinal stromal tumor, he follows with an oncologist in [place]. He reports that he is currently on Gleevec therapy for a metastatic GIST. He also reports that he was due to start radiation on his tumor. He underwent an EGD performed by Dr. Sharpe, which showed large ulcerated mass in the gastric body extending to the fundus with no active bleeding, previous clip in place. He had 6 mL of epinephrine injection APC treatment done to the mass and 200 mL of gastric fluid suctioned. Recommendations are continue antireflux medicine. He is currently n.p.o. LABORATORY STUDIES: White blood cell count 5.7, hemoglobin 7.5, it was 9.2 on admission, platelet count of 230,000. Chemistry studies with a total bilirubin of 0.8, normal AST, ALT, alkaline phosphatase, total protein 7.2, albumin of 2.7. Coags within normal limits. Two units of packed red blood cells are ordered and he has been transfused 1 unit. PAST MEDICAL HISTORY: 1. Metastatic GIST. 2. Hypertension. 3. Diabetes. 4. GI bleed. 5. Iron deficiency. PAST SURGICAL HISTORY: 1. Bilateral knee surgery. 2. L4-L5 laminectomy. 3. Multiple EGDs. HOME MEDICATIONS: Include Gleevec. FAMILY HISTORY: No family history of malignancy. SOCIAL HISTORY: The patient reports that he smokes cigarettes. He denies , alcohol or illegal drug use. PHYSICAL EXAMINATION: GENERAL: Well-developed, well-nourished man in no distress, resting comfortably in bed. SKIN: No rashes. HEAD: Head atraumatic, normocephalic. EYES: No scleral icterus. NECK: Supple with no palpable lymphadenopathy. CARDIOVASCULAR: Regular rate and rhythm. No murmurs. RESPIRATORY: Clear to auscultation bilaterally. ABDOMEN: Soft. Tenderness to palpation. NEUROLOGIC: Grossly nonfocal. ASSESSMENT AND PLAN: 1. Metastatic gastrointestinal stromal tumor, currently under the care of an oncologist in [place]. He is currently receiving therapy with Gleevec. He is currently n.p.o. 2. Large malignant ulcer that is bleeding. Although these lesions can be radiation resistant, will discuss with radiation oncology to see if they think that he would have benefit for radiation to this mass to prevent further bleeding episodes in the future. 3. Anemia, status post transfusion of 2 units of packed red blood cells. Will order iron studies for consideration of further intravenous iron while he is inpatient. Hematology service will continue to follow. MD TITO Alexander/JUNIOR , 06:10 PM , 06:26 PM [place]
--- NOTE | 2018-02-21 18:48 | RADRPT ---
EXAM DATE/TIME: 02/21/2018 18:15 [place] COMPARISON: No previous studies available for comparison. INDICATIONS : Epigastric pain. IV CONTRAST: 95 cc Omnipaque 350 (iohexol) IV ORAL CONTRAST: Prescribed oral contrast ingested. RADIATION DOSE: 16.49 CTDIvol (mGy) MEDICAL HISTORY : Hypertension. Diabetes mellitus type 2. Carcinoma, gastric. SURGICAL HISTORY : None. ENCOUNTER: Initial ACUITY: 1 day PAIN SCALE: 8/10 LOCATION: abdomen TECHNIQUE: Volumetric scanning of the abdomen and pelvis was performed. Using automated exposure control and ad justment of the mA and/or kV according to patient size, radiation dose was kept as low as reasonably achievable to obtain optimal diagnostic quality images. DICOM format image data is available electro nically for review and comparison. FINDINGS: Cardiomegaly with mild interstitial edema. Multiple metastatic deposits in the liver and spleen. Large mass in the left upper quadrant that pro bably gastric that has traveled to the spleen spleen along the gastrosplenic ligament. At least one lymph node is present as well. Gallbladder and pancreas unremarkable The colon appears to be below this. The splenic met is associated with the left kidney. There is nonobstructing 4 mm left renal stone Right renal cyst is evident There is no retroperitoneal adenopathy. Pelvic contents are unremarkable. Review of bone windows reveals degenerative changes without obvious bony metastatic disease. CONCLUSION: 12 cm mass left upper quadrant consistent with gastric carcinoma with involvement of liver and spleen. Numerous metastatic deposits are present in the liver. Cam Alvarado MD FACR on February 21, 2018 at 18:34 Board Certified Radiologist. This report was verified electronically.
--- NOTE | 2018-02-21 19:40 | EKG ---
Date Performed: 02/21/2018 Time Performed: 07:50:35 PTAGE: 52 years EKG: Sinus rhythm , HR OF 75 BPM NONSPECIFIC T-WAVE ABNORMALITY BORDERLINE EKG NO PREVIOUS TRACING DOCTOR: Myrtle Paz Interpretating Date/Time 02/21/2018 19:39:48
[2018-02-21 21:17] LABS: IRON (FE) 25 MCG/DL (65-175)
[2018-02-21 21:25] LABS: % SATURATION IRON PROFILE 10.7 % (20-50); FERRITIN 92 NG/ML (26-388); TOTAL IRON BINDING CAPACITY 234 MCG/DL (250-450)
[2018-02-22] VITALS (7 sets, daily range): BP systolic 142–159; BP diastolic 78–85; PULSE 79–110; RESP 18; TEMP 97.8–100.4; O2SAT 97–100
[2018-02-22] MEDS: PANTOPRAZOLE INJ 80 MG in SODIUM CHLORIDE 0.9% INJ 100 ML IV SCH ×3 (03:13→21:05)
[2018-02-22 05:54] LABS: HEMATOCRIT 28.6 % (39.0-51.0); HEMOGLOBIN 9.7 GM/DL (13.0-17.0)
[2018-02-22] MEDS: DOCUSATE SODIUM 50 MG/SENNA 8.6 MG TAB PO SCH ×2 (09:00→21:00)
[2018-02-22] MEDS: SODIUM CHLOR 0.9% 1000 ML INJ 1,000 ML IV SCH ×2 (09:01→22:11)
[2018-02-22] MEDS: DEXT 5%-NACL 0.9% 1000 ML INJ 1,000 ML IV SCH (09:11)
[2018-02-22] MEDS: SODIUM CHLORIDE 0.9% FLUSH 10 ML FLUSH IV FLUSH SCH ×2 (09:11→21:00)
[2018-02-22 12:03] LABS: HEMATOCRIT 29.2 % (39.0-51.0); HEMOGLOBIN 9.6 GM/DL (13.0-17.0)
--- NOTE | 2018-02-22 12:28 | PD.ONC.PN ---
Subjective Subjective Remarks Resting comforably in bed in no distress. NPO. Minimal abdominal pain. Belching. Objective Data Date Time Temp Pulse Resp B/P (MAP) Pulse Ox O2 Delivery O2 Flow Rate FiO2 02/22/18 07:24 99.0 90 18 151/78 (102) 98 02/22/18 01:57 98.2 79 18 150/85 (106) 98 02/21/18 23:50 83 16 164/90 (114) 97 02/21/18 23:38 98.6 74 16 198/94 02/21/18 20:17 74 16 124/73 02/21/18 19:55 98.6 74 16 152/80 98 02/21/18 19:54 98.6 78 16 152/80 98 02/21/18 19:36 99.0 70 16 156/77 98 02/21/18 15:05 97.5 73 18 140/78 (98) 97 02/21/18 12:35 98.2 80 16 96 Room Air 02/21/18 12:30 85 16 119/68 (85) 95 Room Air 02/22/18 02/22/18 02/22/18 07:00 15:00 23:00 Intake Total 400 ml Output Total 1000 ml Balance 400 ml -1000 ml Result Diagram: 02/22/18 1050 02/21/18 0615 Laboratory Results Laboratory Tests Test 02/21/18 17:42 02/22/18 04:27 02/22/18 10:50 Hemoglobin 7.7 GM/DL 9.7 GM/DL 9.6 GM/DL Hematocrit 23.8 % 28.6 % 29.2 % Administered Medications Medications (Trade) Dose Ordered Sig/Nancy Route PRN Reason Start Time Stop Time Status Last Admin Dose Admin Pantoprazole Sodium 80 mg/ Sodium Chloride 100 ml @ 10 mls/hr Q10H IV 02/20/18 19:05 02/22/18 03:13 Sodium Chloride 1,000 ml @ 100 mls/hr Q10H IV 02/20/18 20:11 02/21/18 10:26 Sodium Chloride (NS Flush) 2 ml BID IV FLUSH 02/20/18 21:00 02/22/18 09:11 Morphine Sulfate (Morphine Inj) 2 mg Q3H PRN IV PUSH IV MED FOR Pain 6-10 02/20/18 20:15 02/21/18 00:16 Oxycodone HCl (Roxicodone) 30 mg Q6H PRN PO PO MED FOR PAIN 3-10 02/20/18 20:45 02/22/18 09:11 Dextrose/Sodium Chloride 1,000 ml @ 100 mls/hr Q10H IV 02/21/18 13:00 02/22/18 09:11 Acetaminophen (Tylenol) 650 mg Q4H PRN PO SEE LABEL COMMENTS 02/21/18 16:00 02/21/18 18:46 Diphenhydramine HCl (Benadryl) 25 mg Q4H PRN PO SEE LABEL COMMENTS 02/21/18 16:00 02/21/18 18:46 Objective Remarks GENERAL: Well-nourished, well-developed patient. HEAD: Normocephalic. EYES: No scleral icterus. No injection or drainage. RESPIRATORY: No accessory muscle use. GASTROINTESTINAL: mild tenderness EXTREMITIES: No cyanosis, or edema. NEUROLOGICAL: No obvious focal deficit. Awake, alert, and oriented x3. Assessment/Plan Assessment 1. Metastatic GIST. Follows with oncologist in [place]. On Gleevec. 2. Recurrent GIB due to malignancy: GIST tumors are tradiationally radiation resistant. Will consult radiation oncology to see if he would be a candidate for palliative radiation therapy to main lesion. Norma Moreira MD Feb 22, 2018 12:28
--- NOTE | 2018-02-22 12:38 | HHI.PR ---
Subjective Remarks Patient reports that pain is controlled. Denies any chest pain or shortness of breath. Objective Vital Signs Date Time Temp Pulse Resp B/P (MAP) Pulse Ox O2 Delivery O2 Flow Rate FiO2 02/22/18 07:24 99.0 90 18 151/78 (102) 98 02/22/18 01:57 98.2 79 18 150/85 (106) 98 02/21/18 23:50 83 16 164/90 (114) 97 02/21/18 23:38 98.6 74 16 198/94 02/21/18 20:17 74 16 124/73 02/21/18 19:55 98.6 74 16 152/80 98 02/21/18 19:54 98.6 78 16 152/80 98 02/21/18 19:36 99.0 70 16 156/77 98 02/21/18 15:05 97.5 73 18 140/78 (98) 97 02/21/18 12:35 98.2 80 16 96 Room Air I/O 02/21/18 02/21/18 02/21/18 02/22/18 02/22/18 02/22/18 07:00 15:00 23:00 07:00 15:00 23:00 Intake Total 400 ml 410 ml 400 ml Output Total 1000 ml Balance 400 ml 410 ml 400 ml -1000 ml Packed Cells 400 ml 400 ml 400 ml Blood Product IV Normal Saline Flush 10 ml Output Urine Total 1000 ml # Voids 0 Result Diagram: 02/22/18 1050 02/21/18 0615 Objective Remarks GENERAL: Patient sitting up in bed. Appears comfortable. Alert and oriented 3. SKIN: Warm and dry. HEAD: Normocephalic. EYES: No scleral icterus. No injection or drainage. NECK: Supple, trachea midline. No JVD. CARDIOVASCULAR: Regular rate and rhythm without murmurs, gallops, or rubs. RESPIRATORY: Breath sounds equal bilaterally. No accessory muscle use. GASTROINTESTINAL: Abdomen soft, non-tender, nondistended. MUSCULOSKELETAL: No cyanosis, or edema. BACK: Nontender without obvious deformity. No CVA tenderness. A/P Assessment and Plan //GI Bleed: h/o similar 11/22/17 s/p clipping by Dr. Fragoso. s/p EGD today w findings of Large ulcerated mass in gastric body, extending to fundus w no active bleeding, previous appied clip in place; s/p epinephrine injection and APC treatment done of the mass. s/p 1 unit PRBC and GI recommend giving an additional 2 units. I will go ahead and place order. IR consulted for embolization and GI also consulted med onc. Protonix gtt, NPO. Analgesics/ antiemetics as needed. = EGD with bleeding mass. Hemoglobin 9.6 today improved from 7.7 yesterday after 2 units of PRBCs appreciate GI assistance. Continue to monitor //Anemia: Secondary to above, down to Hgb 7.4, monitor closely. Transfuse 2 additional units PRBC. = 02/22. Hemoglobin 9.6 from seven-point 2:07 units PRBCs. Continue to monitor. //Ulcerated gastric malignant mass: Follows w/ Oncologist in [place], previously on Chemo, Oncology consulted. =02/22 Appreciate oncology assistance. Radiation oncology consult and pending. // DVT Prophylaxis: Pharmacologic contraindication secondary to active bleeding. Discharge Planning We will need oncology and GI clearance. Edin Victor MD Feb 22, 2018 12:38
[2018-02-22] MEDS: MORPHINE SULFATE 2 MG/ML INJ IV PUSH PRN (13:00)
--- NOTE | 2018-02-22 17:02 | HHI.GIFU ---
Subjective Remarks Up walking around in room going to the bathroom Family members present Continues to try to keep his spirits elevated Mild gastric tenderness (Bev Starr) Objective Vitals I&O Vital Signs Date Time Temp Pulse Resp B/P (MAP) Pulse Ox O2 Delivery O2 Flow Rate FiO2 02/22/18 16:00 97.8 101 18 151/85 (107) 97 02/22/18 12:41 98.6 94 18 159/82 (107) 98 02/22/18 12:00 110 02/22/18 07:24 99.0 90 18 151/78 (102) 98 02/22/18 07:21 91 02/22/18 01:57 98.2 79 18 150/85 (106) 98 02/21/18 23:50 83 16 164/90 (114) 97 02/21/18 23:38 98.6 74 16 198/94 02/21/18 20:17 74 16 124/73 02/21/18 19:55 98.6 74 16 152/80 98 02/21/18 19:54 98.6 78 16 152/80 98 02/21/18 19:36 99.0 70 16 156/77 98 I/O 02/21/18 02/21/18 02/21/18 02/22/18 02/22/18 02/22/18 07:00 15:00 23:00 07:00 15:00 23:00 Intake Total 400 ml 410 ml 400 ml 100 ml Output Total 1000 ml Balance 400 ml 410 ml 400 ml -900 ml Intake IV Total 100 ml Packed Cells 400 ml 400 ml 400 ml Blood Product IV Normal Saline Flush 10 ml Output Urine Total 1000 ml # Voids 0 Laboratory Laboratory Tests Test 02/21/18 17:42 02/22/18 04:27 02/22/18 10:50 Hemoglobin 7.7 9.7 9.6 Hematocrit 23.8 28.6 29.2 Imaging Last Impressions Abdomen/Pelvis CT 02/21/18 0000 Signed Impressions: Service Date/Time: Wednesday, February 21, 2018 18:15 - CONCLUSION: 12 cm mass left upper quadrant consistent with gastric carcinoma with involvement of liver and spleen. Numerous metastatic deposits are present in the liver. Cam Alvarado MD FACR Physical Exam HEENT: Pupils round and reactive to light; normocephalic; atraumatic; NECK: Neck is supple CHEST: No obvious rhonchi or wheezing CARDIAC: Regular rate and rhythm ABDOMEN: Round, Soft, nondistended, upper abdomen and gastric tenderness; mild hepatosplenomegaly; bowel sounds are present in all four quadrants. EXTREMITIES: No clubbing, cyanosis, or edema. SKIN: Normal; no rash; no jaundice, mucous membranes pale CAREER AND TECHNOLOGY EDUCATION TEACHER: No focal deficits; alert and oriented times three. (Bev Starr) Assessment and Plan Plan Assessment: - UGI bleed- reports of hematemesis and melena x 1 week with epigastric/LUQ abdominal pain. History of malignant gastric ulcer with bleeding. Recently evaluated by our service here. EGD (11/22/17)--> Normal esophagus. Normal duodenal mucosa and second portion of the duodenum. Large malignant ulcer in the gastric body with intermittent oozing of blood from visible vessel, complete hemostasis was achieved by placing single clip on bleeding site. H/H dropped from 9.2/28.4 yesterday to 7.5/23.3 - Malignant gastric ulcer- follows oncologist in [place]- Dr. Corbin Childress was supposed to be started on radiation tx last Thursday but was not feeling well enough. Denies plans for resection or chemo. 02/22/18 has been transferred to 712. Up in room pending IR to control bleeding. Patient has large malignant ulcer. Questionable , patient would benefit from radiation ? mild gastric tenderness with light palpation. HGB currently 9.6 Plan: Pending IR today. Encourage activity up in room Keep NPO Protonix gtt Monitor labs Monitor H/H Supportive care Further recommendations based on findings of above Pt has been seen and examined by myself and Dr. Dumont and this note is written on his behalf (Bev Starr) Physician Comments Patient seen and examined Agree with above Continue with current supportive care Monitor labs (John Dumont MD) Bev Starr Feb 22, 2018 17:02 John Dumont MD Feb 22, 2018 20:45
--- NOTE | 2018-02-22 18:28 | RC ---
cc: Jake Carter MD,Norma Bejarano MD DATE OF SERVICE: 02/22/2018 HISTORY OF PRESENT ILLNESS: Mr. 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 He has been on systemic therapy, reports radiation therapy approximately 1 year ago to his chest, comes in with a significant GI bleeding. He has had vomiting of blood and black stool. Ulcer noted as well. He had been on Gleevec and underwent an EGD that demonstrated a large ulcerative mass in the gastric body. He is n.p.o. at this time. He also has a history of hypertension, diabetes, GI bleed, iron deficiency, laminectomy, bilateral knee surgery and radiation to the chest. Prior radiation to his chest. MEDICATIONS: Gleevec. FAMILY HISTORY: No first-degree relatives with malignancy. SOCIAL HISTORY: He smokes. is present with 2 relatives today. PHYSICAL EXAMINATION: GENERAL: Pleasant male, comfortable, KPS 90. EYES: EOMI. EXTREMITIES: No clubbing, cyanosis, edema. NEUROLOGIC: Alert and oriented. RADIOGRAPHIC IMAGING DATA: CT of the abdomen and pelvis, 02/21/2018, demonstrates a large left upper quadrant mass consistent with gastric carcinoma with metastases to liver and spleen. IMPRESSION: Mr. No with malignant gastrointestinal stromal tumor. RECOMMENDATIONS: We discussed palliative radiation therapy to the abdomen. Literature suggests likely 60% chance of symptomatic relief or signs of response with less bleeding. He is agreeable to proceed with treatment. He is currently inpatient. He is interested in proceeding with radiation. We will schedule for CT simulation. Complex blocking will be done. PLAN: A 20 Gy, [address] simulation scheduled for tomorrow, 02/23/2018. I discussed this case with Dr. Moreira. We discussed at this time n.p.o. as well. MD SANJAY Tiwari/SB , 05:33 PM , 06:27 PM MTD
[2018-02-22 21:31] LABS: HEMATOCRIT 30.5 % (39.0-51.0); HEMOGLOBIN 10.1 GM/DL (13.0-17.0)
[2018-02-23] VITALS (7 sets, daily range): BP systolic 124–164; BP diastolic 65–96; PULSE 80–102; RESP 16–18; TEMP 98–100.7; O2SAT 97–100
[2018-02-23] MEDS: SODIUM CHLORIDE 0.9% FLUSH 10 ML FLUSH IV FLUSH SCH ×2 (09:00→19:31)
[2018-02-23] MEDS: DOCUSATE SODIUM 50 MG/SENNA 8.6 MG TAB PO SCH ×2 (09:00→19:29)
[2018-02-23 09:34] LABS: BASOPHIL % 0.5 % (0.0-2.0); EOSINOPHIL # 0.2 TH/MM3 (0-0.4); EOSINOPHIL % 2.2 % (0.0-4.0); HEMATOCRIT 27.6 % (39.0-51.0); HEMOGLOBIN 9.4 GM/DL (13.0-17.0); LYMPH % 10.9 % (9.0-44.0); LYMPHOCYTE # 0.9 TH/MM3 (1.0-4.8); MEAN CELL VOLUME 81.6 FL (80.0-100.0); MEAN CORPUSCULAR HEMOGLOBIN 27.7 PG (27.0-34.0); MEAN CORPUSCULAR HGB CONC 33.9 % (32.0-36.0); MEAN PLATELET VOLUME 7.4 FL (7.0-11.0); MONO % 12.1 % (0.0-8.0); NEUT % 74.3 % (16.0-70.0); PLATELET COUNT 218 TH/MM3 (150-450); RED BLOOD COUNT 3.39 MIL/MM3 (4.50-5.90); RED CELL DISTRIBUTION WIDTH 24.2 % (11.6-17.2); WHITE BLOOD COUNT 8.1 TH/MM3 (4.0-11.0)
[2018-02-23 09:56] LABS: ALBUMIN 2.5 GM/DL (3.4-5.0); BICARBONATE 24.2 MEQ/L (21.0-32.0); CREATININE 0.88 MG/DL (0.60-1.30)
[2018-02-23 10:03] LABS: PHOSPHORUS 2.5 MG/DL (2.5-4.9)
--- NOTE | 2018-02-23 13:49 | HHI.GIFU ---
Subjective Remarks Pt resting in bed Recently returned from the [facility] Pt complaining of continued LUQ pain Denies any BM since endoscopic procedure Denies emesis (Ewa Varela) Objective Vitals I&O Vital Signs Date Time Temp Pulse Resp B/P (MAP) Pulse Ox O2 Delivery O2 Flow Rate FiO2 02/23/18 12:00 98.9 80 18 124/65 (84) 98 02/23/18 08:00 99.3 88 18 137/74 (95) 99 02/23/18 05:39 100.7 94 17 147/82 (103) 97 02/23/18 00:23 100.2 94 17 147/84 (105) 98 02/22/18 21:27 100.4 104 18 142/81 (101) 100 02/22/18 16:00 97.8 101 18 151/85 (107) 97 I/O 02/22/18 02/22/18 02/22/18 02/23/18 02/23/18 02/23/18 07:00 15:00 23:00 07:00 15:00 23:00 Intake Total 400 ml 100 ml 125 ml 240 ml Output Total 1000 ml Balance 400 ml -900 ml 125 ml 240 ml Intake Oral 125 ml 240 ml IV Total 100 ml Packed Cells 400 ml Output Urine Total 1000 ml # Voids 1 2 # Bowel Movements 0 Laboratory Laboratory Tests Test 02/22/18 20:46 02/23/18 08:38 Hemoglobin 10.1 9.4 Hematocrit 30.5 27.6 White Blood Count 8.1 Red Blood Count 3.39 Mean Corpuscular Volume 81.6 Mean Corpuscular Hemoglobin 27.7 Mean Corpuscular Hemoglobin Concent 33.9 Red Cell Distribution Width 24.2 Platelet Count 218 Mean Platelet Volume 7.4 Neutrophils (%) (Auto) 74.3 Lymphocytes (%) (Auto) 10.9 Monocytes (%) (Auto) 12.1 Eosinophils (%) (Auto) 2.2 Basophils (%) (Auto) 0.5 Neutrophils # (Auto) 6.0 Lymphocytes # (Auto) 0.9 Monocytes # (Auto) 1.0 Eosinophils # (Auto) 0.2 Basophils # (Auto) 0.0 CBC Comment DIFF FINAL Differential Comment Blood Urea Nitrogen 8 Creatinine 0.88 Random Glucose 101 Albumin 2.5 Calcium Level 8.0 Phosphorus Level 2.5 Magnesium Level 2.0 Sodium Level 135 Potassium Level 3.2 Chloride Level 103 Carbon Dioxide Level 24.2 Anion Gap 8 Estimat Glomerular Filtration Rate 110 Imaging Last Impressions Abdomen/Pelvis CT 02/21/18 0000 Signed Impressions: Service Date/Time: Wednesday, February 21, 2018 18:15 - CONCLUSION: 12 cm mass left upper quadrant consistent with gastric carcinoma with involvement of liver and spleen. Numerous metastatic deposits are present in the liver. Cam Alvarado MD FACR Physical Exam HEENT: Normocephalic; atraumatic CHEST: Even/unlabored CARDIAC: RRR ABDOMEN: Distended, semi-firm, upper abdomen tenderness, bowel sounds active SKIN: Normal; no rash RESEARCH STATISTICIAN: No focal deficits; alert and oriented times three. (Ewa Varela) Assessment and Plan Plan Assessment: - UGI bleed- reports of hematemesis and melena x 1 week with epigastric/LUQ abdominal pain. History of malignant gastric ulcer with bleeding. Recently evaluated by our service here. EGD (11/22/17)--> Normal esophagus. Normal duodenal mucosa and second portion of the duodenum. Large malignant ulcer in the gastric body with intermittent oozing of blood from visible vessel, complete hemostasis was achieved by placing single clip on bleeding site. H/H dropped from 9.2/28.4 yesterday to 7.5/23.3 - Malignant gastric ulcer- follows oncologist in [place]- Dr. Corbin Childress was supposed to be started on radiation tx last Thursday but was not feeling well enough. Denies plans for resection or chemo. (02/23) EGD(02/21) --> Large ulcerated mass in gastric body, extending to fundus, no active bleeding, previous applied clip in place. Epig injected APC tx done of the mass. 200 cc of gastric fluid suctioned. Hiatal hernia. No role in additional endoscopic tx due to size and extent of tumor. Pt S/P oncology and radiation oncology consults. Pt returned from the [facility] shortly before my exam. Complaining of continued upper abdominal/LUQ pain. Denies BM since EGD. Denies emesis. IR consult placed on - pt at high risk for rebleeding. Denies BM or emesis since EGD H/H has remained stable since yesterday morning, last transfused on [id number]. At this time, not much to add from a GI standpoint, IR consult still pending would recommend this as first option if rebleeding. Regarding tumor, further recommendations by radiation oncology and medical oncology. Plan: Protonix Further recommendations per oncology/radiation oncology Can advance diet as tolerated, currently on clear liquid GI will sign off, please reconsult as needed Pt has been seen and examined by myself and Dr. Dumont and this note is written on his behalf (Ewa Varela) Physician Comments Patient seen and examined Agree with above Continue with current supportive care Monitor labs Not much to add from a GI perspective we will sign off (John Dumont MD) Ewa Varela Feb 23, 2018 13:49 John Dumont MD Feb 23, 2018 20:17
[2018-02-23] MEDS ORDERED: POTASSIUM CHLORIDE 10 MEQ CONTROLLED RELEASE TAB PO ONE (14:45)
--- NOTE | 2018-02-23 17:03 | HHI.PR ---
Subjective Remarks Nursing denies any deterioration since last night. Patient says that his abdominal pain now is at baseline. He also reports having intermittent fevers and chills but says this is also his baseline. Denies any nausea. Denies any new pain shortness of breath or new cough. Objective Vital Signs Date Time Temp Pulse Resp B/P (MAP) Pulse Ox O2 Delivery O2 Flow Rate FiO2 02/23/18 16:32 99.3 89 18 146/91 (109) 100 02/23/18 16:00 99.9 87 18 139/82 (101) 97 02/23/18 12:00 98.9 80 18 124/65 (84) 98 02/23/18 08:00 99.3 88 18 137/74 (95) 99 02/23/18 05:39 100.7 94 17 147/82 (103) 97 02/23/18 00:23 100.2 94 17 147/84 (105) 98 02/22/18 21:27 100.4 104 18 142/81 (101) 100 I/O 02/22/18 02/22/18 02/22/18 02/23/18 02/23/18 02/23/18 07:00 15:00 23:00 07:00 15:00 23:00 Intake Total 400 ml 100 ml 125 ml 240 ml Output Total 1000 ml Balance 400 ml -900 ml 125 ml 240 ml Intake Oral 125 ml 240 ml IV Total 100 ml Packed Cells 400 ml Output Urine Total 1000 ml # Voids 1 2 # Bowel Movements 0 Result Diagram: 02/23/18 0838 02/23/18 0838 Objective Remarks Abdomen is soft, nontender, nondistended Lying in bed, awake, alert, no acute distress A/P Assessment and Plan Assessment and Plan New onset fevers of 100.7 - d/w oncology, I will obtain blood cultures and a chest x-ray based on the recommendations for a very basic workup given the new fevers GI Bleed - 2/2 large Large ulcerated gastric mass; s/p epinephrine injection and APC treatment done of the mass. now Tolerating po intake well w/ no further signs of bleeding GIST -Oncology following, planning 2 rounds of radiation treatment before discharge Anemia: improved post transfusion, monitor for signs of bleeding Noé Mendez MD Feb 23, 2018 17:03
--- NOTE | 2018-02-23 17:40 | RADRPT ---
EXAM DATE/TIME: 02/23/2018 16:18 [facility] COMPARISON: No previous studies available for comparison. INDICATIONS : Chest pain, cough, fever. MEDICAL HISTORY : Diabetes mellitus type I. Hypertension Carcinoma, lung. SURGICAL HISTORY : None. ENCOUNTER: Initial ACUITY: 2 days PAIN SCORE: 5/10 LOCATION: middle chest. FINDINGS: PA and lateral views of the chest demonstrate the lungs to be symmetrically aerated without evidence of mass, infiltrate or effusion. Minimal basilar atelectasis. The cardiomediastinal contours are unre markable. Osseous structures are intact. CONCLUSION: 1. Minimal basilar atelectasis or scarring. No active disease. Lanre Cardoso MD on February 23, 2018 at 17:33 Board Certified Radiologist. This report was verified electronically.
--- NOTE | 2018-02-23 18:17 | PD.ONC.PN ---
Subjective Subjective Remarks Sitting at bedside in no distress. Looking forward to dinner. Denies nausea/ vomiting, blood in vomit, blood in stool, dark stool. Objective Data Date Time Temp Pulse Resp B/P (MAP) Pulse Ox O2 Delivery O2 Flow Rate FiO2 02/23/18 16:32 99.3 89 18 146/91 (109) 100 02/23/18 16:00 99.9 87 18 139/82 (101) 97 02/23/18 12:00 98.9 80 18 124/65 (84) 98 02/23/18 08:00 99.3 88 18 137/74 (95) 99 02/23/18 05:39 100.7 94 17 147/82 (103) 97 02/23/18 00:23 100.2 94 17 147/84 (105) 98 02/22/18 21:27 100.4 104 18 142/81 (101) 100 02/23/18 02/23/18 02/23/18 06:59 14:59 22:59 Intake Total 240 ml Balance 240 ml Result Diagram: 02/23/1838 02/23/18 0838 Laboratory Results Laboratory Tests Test 02/22/18 20:46 02/23/18 08:38 Hemoglobin 10.1 GM/DL 9.4 GM/DL Hematocrit 30.5 % 27.6 % White Blood Count 8.1 TH/MM3 Red Blood Count 3.39 MIL/MM3 Mean Corpuscular Volume 81.6 FL Mean Corpuscular Hemoglobin 27.7 PG Mean Corpuscular Hemoglobin Concent 33.9 % Red Cell Distribution Width 24.2 % Platelet Count 218 TH/MM3 Mean Platelet Volume 7.4 FL Neutrophils (%) (Auto) 74.3 % Lymphocytes (%) (Auto) 10.9 % Monocytes (%) (Auto) 12.1 % Eosinophils (%) (Auto) 2.2 % Basophils (%) (Auto) 0.5 % Neutrophils # (Auto) 6.0 TH/MM3 Lymphocytes # (Auto) 0.9 TH/MM3 Monocytes # (Auto) 1.0 TH/MM3 Eosinophils # (Auto) 0.2 TH/MM3 Basophils # (Auto) 0.0 TH/MM3 CBC Comment DIFF FINAL Differential Comment Blood Urea Nitrogen 8 MG/DL Creatinine 0.88 MG/DL Random Glucose 101 MG/DL Albumin 2.5 GM/DL Calcium Level 8.0 MG/DL Phosphorus Level 2.5 MG/DL Magnesium Level 2.0 MG/DL Sodium Level 135 MEQ/L Potassium Level 3.2 MEQ/L Chloride Level 103 MEQ/L Carbon Dioxide Level 24.2 MEQ/L Anion Gap 8 MEQ/L Estimat Glomerular Filtration Rate 110 ML/MIN Culture Results Microbiology Date/Time Source Procedure Growth Status 02/23/18 15:10 Blood Peripheral Aerobic Blood Culture Pending Received 02/23/18 15:10 Blood Peripheral Anaerobic Blood Culture Pending Received 02/23/18 15:05 Blood Peripheral Aerobic Blood Culture Pending Received 02/23/18 15:05 Blood Peripheral Anaerobic Blood Culture Pending Received Administered Medications Medications (Trade) Dose Ordered Sig/Nancy Route PRN Reason Start Time Stop Time Status Last Admin Dose Admin Sodium Chloride (NS Flush) 2 ml BID IV FLUSH 02/20/18 21:00 02/22/18 09:11 Acetaminophen (Tylenol) 650 mg Q6H PRN PO FEVER/PAIN SCALE 1 TO 2 02/20/18 20:15 02/23/18 04:52 Senna/Docusate Sodium (Luz Marina-Colace) 1 tab BID PO 02/20/18 21:00 02/22/18 21:00 Oxycodone HCl (Roxicodone) 30 mg Q6H PRN PO PO MED FOR PAIN 3-10 02/20/18 20:45 02/22/18 09:11 Acetaminophen (Tylenol) 650 mg Q4H PRN PO SEE LABEL COMMENTS 02/21/18 16:00 02/21/18 18:46 Diphenhydramine HCl (Benadryl) 25 mg Q4H PRN PO SEE LABEL COMMENTS 02/21/18 16:00 02/21/18 18:46 Objective Remarks GENERAL: Well-nourished, well-developed patient. HEAD: Normocephalic. EYES: No scleral icterus. RESPIRATORY: No accessory muscle use. GASTROINTESTINAL: Abdomen soft, non-tender, nondistended. EXTREMITIES: No edema. NEUROLOGICAL: No obvious focal deficit. Awake, alert, and oriented x3. PSYCHIATRIC: Appropriate mood and affect; insight and judgment normal. Assessment/Plan Assessment 1. Metastatic GIST. Follows with oncologist in [place]. On Gleevec. On discharge he will follow closely with primary oncology team. 2. Recurrent GIB due to malignancy: Scheduled to receive five treatments of radiation therapy to the stomach to help prevent future bleeding episodes. Norma Moreira MD Feb 23, 2018 18:16
[2018-02-23] MEDS ORDERED: PANTOPRAZOLE SOD 40 MG DELAYED RELEASE TAB PO ONE (20:00)
[2018-02-24] VITALS: BP 137/83; PULSE 82; RESP 18; TEMP 98.9; O2SAT 99
[2018-02-24 04:00] VITALS: BP 153/86; PULSE 95; RESP 15; TEMP 99.6; O2SAT 96
[2018-02-24] MEDS: ONDANSETRON HCL 4 MG/2 ML VIAL IVP PRN ×2 (04:26→19:48)
[2018-02-24] MEDS ORDERED: NOVOLOGP2 SQ (05:11)
[2018-02-24 07:10] VITALS: BP 136/80; PULSE 82; RESP 18; TEMP 98.8; O2SAT 97
[2018-02-24] MEDS: PANTOPRAZOLE SOD 40 MG DELAYED RELEASE TAB PO SCH (07:59)
[2018-02-24] MEDS: DOCUSATE SODIUM 50 MG/SENNA 8.6 MG TAB PO SCH ×2 (07:59→19:44)
[2018-02-24] MEDS: SODIUM CHLORIDE 0.9% FLUSH 10 ML FLUSH IV FLUSH SCH ×2 (08:00→19:49)
[2018-02-24 08:06] LABS: AUTOMATED NEUTROPHIL # 5.5 TH/MM3 (1.8-7.7); BASOPHIL % 0.4 % (0.0-2.0); EOSINOPHIL # 0.4 TH/MM3 (0-0.4); EOSINOPHIL % 4.7 % (0.0-4.0); HEMATOCRIT 27.6 % (39.0-51.0); LYMPH % 11.1 % (9.0-44.0); LYMPHOCYTE # 0.8 TH/MM3 (1.0-4.8); MEAN CELL VOLUME 83.1 FL (80.0-100.0); MEAN CORPUSCULAR HEMOGLOBIN 27.1 PG (27.0-34.0); MEAN CORPUSCULAR HGB CONC 32.6 % (32.0-36.0); MEAN PLATELET VOLUME 7.8 FL (7.0-11.0); MONO % 11.9 % (0.0-8.0); MONOCYTE # 0.9 TH/MM3 (0-0.9); NEUT % 71.9 % (16.0-70.0); PLATELET COUNT 221 TH/MM3 (150-450); RED BLOOD COUNT 3.31 MIL/MM3 (4.50-5.90); RED CELL DISTRIBUTION WIDTH 24.1 % (11.6-17.2); WHITE BLOOD COUNT 7.6 TH/MM3 (4.0-11.0)
[2018-02-24 08:10] LABS: BICARBONATE 25.2 MEQ/L (21.0-32.0); CALCIUM 7.9 MG/DL (8.5-10.1); CREATININE 0.89 MG/DL (0.60-1.30); MAGNESIUM 1.9 MG/DL (1.5-2.5)
[2018-02-24] MEDS ORDERED: POTASSIUM CHLORIDE 10 MEQ CONTROLLED RELEASE TAB PO ONE (08:30)
--- NOTE | 2018-02-24 08:31 | HHI.DCPOC ---
Discharge Care Plan Diagnosis: (1) Malignant gastric ulcer (2) GI bleed (3) Anemia Goals to Promote Your Health * To prevent worsening of your condition and complications * To maintain your health at the optimal level Directions to Meet Your Goals Take your medications as prescribed Follow your dietary instruction Follow activity as directed Keep your appointments as scheduled Take your immunizations and boosters as scheduled If your symptoms worsen call your PCP, if no PCP go to Urgent Care Center or Emergency Room Smoking is Dangerous to Your Health. Avoid second hand smoke Call the 24-hour hour crisis hotline for domestic abuse at Kenneth Carolina MD Feb 24, 2018 08:31
--- NOTE | 2018-02-24 08:32 | HHI.DS ---
Discharge Summary Admission Date Feb 21, 2018 at 14:45 Admitting Diagnosis upper GI bleed, melena gastric ulcer, symptomatic anemia (1) GI bleed ICD Code: K92.2 - Gastrointestinal hemorrhage, unspecified Status: Acute (2) Malignant gastric ulcer ICD Code: C16.9 - Malignant neoplasm of stomach, unspecified (3) Anemia ICD Code: D64.9 - Anemia, unspecified Brief History - From Admission This is a 52-year-old male with a PMH of HTN, Malignant Gastric Ulcer, h/o GI Bleed and Tobacco Abuse who presented to the ER with complaints of hematemesis and melena for approximately 1wk. H/o similar symptoms for which he was admitted 11/22-11/24/17, s/p EGD by Dr. Fragoso with successful clipping and hemostasis of malignant ulcer. Follows with [employer] Support [facility] in [place], [facility] he receives regular transfusions of iron due to ongoing anemia. Reports baseline Hgb 8-9. On arrival, BP 153/90, HR 109, O2 sat 100% RA, Afebrile. Hemoglobin 9.2. Chemistry essentially unremarkable except for GFR 79. INR 1.0. Hemoccult + on exam. Started on Protonix gtt in ER. CBC/BMP: 02/24/18 0656 02/24/18 0656 Significant Findings Laboratory Tests Test 02/21/18 17:42 02/22/18 04:27 02/22/18 10:50 02/22/18 20:46 Hemoglobin 7.7 GM/DL (13.0-17.0) 9.7 GM/DL (13.0-17.0) 9.6 GM/DL (13.0-17.0) 10.1 GM/DL (13.0-17.0) Hematocrit 23.8 % (39.0-51.0) 28.6 % (39.0-51.0) 29.2 % (39.0-51.0) 30.5 % (39.0-51.0) Test 02/23/18 08:38 02/24/18 06:56 Red Blood Count 3.39 MIL/MM3 (4.50-5.90) 3.31 MIL/MM3 (4.50-5.90) Hemoglobin 9.4 GM/DL (13.0-17.0) 9.0 GM/DL (13.0-17.0) Hematocrit 27.6 % (39.0-51.0) 27.6 % (39.0-51.0) Red Cell Distribution Width 24.2 % (11.6-17.2) 24.1 % (11.6-17.2) Neutrophils (%) (Auto) 74.3 % (16.0-70.0) 71.9 % (16.0-70.0) Monocytes (%) (Auto) 12.1 % (0.0-8.0) 11.9 % (0.0-8.0) Lymphocytes # (Auto) 0.9 TH/MM3 (1.0-4.8) 0.8 TH/MM3 (1.0-4.8) Monocytes # (Auto) 1.0 TH/MM3 (0-0.9) Albumin 2.5 GM/DL (3.4-5.0) Calcium Level 8.0 MG/DL (8.5-10.1) 7.9 MG/DL (8.5-10.1) Sodium Level 135 MEQ/L (136-145) Potassium Level 3.2 MEQ/L (3.5-5.1) 3.2 MEQ/L (3.5-5.1) Eosinophils (%) (Auto) 4.7 % (0.0-4.0) Random Glucose 155 MG/DL (74-106) PE at Discharge GENERAL: AA male laying in his right HEENT: EOMI. CARDIOVASCULAR: Regular rate and rhythm. RESPIRATORY: No obvious rhonchi or wheezing. Clear to auscultation. GASTROINTESTINAL: Abdomen soft, epigastric tenderness to palpation, nondistended. BS normal. MUSCULOSKELETAL: Extremities without edema. No obvious deformities. NEUROLOGICAL: Awake, alert and oriented x4. laying on his right, appears uncomfortable, position Pt Condition on Discharge: Good Discharge Disposition: Discharge Home Discharge Instructions DIET: Follow Instructions for: As Tolerated, No Restrictions Activities you can perform: Regular-No Restrictions Kenneth Carolina MD Feb 24, 2018 08:32
--- NOTE | 2018-02-24 09:16 | HHI.PR ---
Subjective Remarks Patient reports he is doing okay. Tolerating his diet. No bowel movement yet today. Objective Vitals Vital Signs Date Time Temp Pulse Resp B/P (MAP) Pulse Ox O2 Delivery O2 Flow Rate FiO2 02/24/18 07:10 98.8 82 18 136/80 (98) 97 02/24/18 04:00 99.6 95 15 153/86 (108) 96 02/24/18 00:00 98.9 82 18 137/83 (101) 99 02/23/18 20:00 98.0 102 16 164/96 (118) 100 02/23/18 16:32 99.3 89 18 146/91 (109) 100 02/23/18 16:00 99.9 87 18 139/82 (101) 97 02/23/18 12:00 98.9 80 18 124/65 (84) 98 I/O 02/23/18 02/23/18 02/23/18 02/24/18 02/24/18 02/24/18 07:00 15:00 23:00 07:00 15:00 23:00 Intake Total 240 ml Balance 240 ml Intake Oral 240 ml # Voids 2 1 Result Diagram: 02/24/18 0656 02/24/18 0656 Objective Remarks GENERAL: This is a well-nourished, well-developed patient, in no apparent distress. CARDIOVASCULAR: Normal rate and regular rhythm without murmurs, gallops, or rubs. RESPIRATORY: Good respiratory efforts. Breath sounds equal and clear to auscultation bilaterally. GASTROINTESTINAL: Abdomen soft, non-tender, non-distended. Normal active bowel sounds MUSCULOSKELETAL: Extremities without cyanosis, or edema. NEURO: Alert & Oriented x4 to person, place, time, situation. Moves all ext x4 PSYCH: Appropriate mood and affect. A/P Problem List: (1) GI bleed ICD Code: K92.2 - Gastrointestinal hemorrhage, unspecified Status: Acute (2) Malignant gastric ulcer ICD Code: C16.9 - Malignant neoplasm of stomach, unspecified (3) Anemia ICD Code: D64.9 - Anemia, unspecified Assessment and Plan 52-year-old male with GI bleeding in the setting GI Bleed: h/o similar 11/22/17 s/p clipping by Dr. Fragoso. s/p repeat EGD w findings of Large ulcerated mass in gastric body, extending to fundus w no active bleeding, previous appied clip in place; s/p epinephrine injection and APC treatment done of the mass. -Continue to monitor per GI. The bleeding recurs, consider consult to IR Fever: Resolved. No infectious focus. Anemia: Status post transfusion of 2 units of PRBC. H&H stable. Continue to monitor. Ulcerated gastric malignant mass: Follows w/ Oncologist in [place], previously on Chemo, Oncology consulted. Appreciate oncology assistance. Radiation oncology following. Scheduled to receive five treatments of radiation therapy to the stomach to help prevent future bleeding episodes. DVT Prophylaxis: Pharmacologic contraindication secondary to bleeding. Problem Qualifiers (1) GI bleed: Qualified Codes: K92.1 - Melena Kenneth Carolina MD Feb 24, 2018 09:16
[2018-02-24 11:40] VITALS: BP 134/78; PULSE 82; RESP 18; TEMP 98.9; O2SAT 97
[2018-02-24 15:15] VITALS: BP 126/76; PULSE 77; RESP 18; TEMP 98; O2SAT 96
[2018-02-24 20:00] VITALS: BP 146/88; PULSE 81; RESP 16; TEMP 97.9; O2SAT 100
[2018-02-25] VITALS: BP 140/87; PULSE 86; RESP 17; TEMP 98.1; O2SAT 100
[2018-02-25 04:00] VITALS: BP 148/88; PULSE 90; RESP 16; TEMP 97; O2SAT 97
[2018-02-25] MEDS: ONDANSETRON HCL 4 MG/2 ML VIAL IVP PRN (04:35)
[2018-02-25] MEDS: PANTOPRAZOLE SOD 40 MG DELAYED RELEASE TAB PO SCH (08:21)
[2018-02-25] MEDS: DOCUSATE SODIUM 50 MG/SENNA 8.6 MG TAB PO SCH (08:21)
[2018-02-25] MEDS: SODIUM CHLORIDE 0.9% FLUSH 10 ML FLUSH IV FLUSH SCH (08:22)
[2018-02-25 08:29] VITALS: BP 131/78; PULSE 86; RESP 16; TEMP 98.5; O2SAT 95
[2018-02-25 08:47] LABS: HEMATOCRIT 27.6 % (39.0-51.0); HEMOGLOBIN 8.9 GM/DL (13.0-17.0); MEAN CELL VOLUME 82.3 FL (80.0-100.0); MEAN CORPUSCULAR HEMOGLOBIN 26.5 PG (27.0-34.0); MEAN CORPUSCULAR HGB CONC 32.1 % (32.0-36.0); MEAN PLATELET VOLUME 7.4 FL (7.0-11.0); PLATELET COUNT 225 TH/MM3 (150-450); RED BLOOD COUNT 3.36 MIL/MM3 (4.50-5.90); RED CELL DISTRIBUTION WIDTH 23.3 % (11.6-17.2); WHITE BLOOD COUNT 6.7 TH/MM3 (4.0-11.0)
[2018-02-25 09:21] LABS: BICARBONATE 26.1 MEQ/L (21.0-32.0); CALCIUM 7.9 MG/DL (8.5-10.1); CREATININE 0.81 MG/DL (0.60-1.30)
--- NOTE | 2018-02-25 10:39 | HHI.DS ---
Discharge Summary Admission Date Feb 21, 2018 at 14:45 Discharge Date: Feb 25, 2018 Admitting Diagnosis upper GI bleed, melena gastric ulcer, symptomatic anemia (1) GI bleed ICD Code: K92.2 - Gastrointestinal hemorrhage, unspecified Status: Acute (2) Malignant gastric ulcer ICD Code: C16.9 - Malignant neoplasm of stomach, unspecified (3) Anemia ICD Code: D64.9 - Anemia, unspecified Procedures EGD Brief History - From Admission HPI from the admitting physician This is a 52-year-old male with a PMH of HTN, Malignant Gastric Ulcer, h/o GI Bleed and Tobacco Abuse who presented to the ER with complaints of hematemesis and melena for approximately 1wk. H/o similar symptoms for which he was admitted 11/22-11/24/17, s/p EGD by Dr. Fragoso with successful clipping and hemostasis of malignant ulcer. Follows with Correspondence Clerk in [place], [facility] he receives regular transfusions of iron due to ongoing anemia. Reports baseline Hgb 8-9. On arrival, BP 153/90, HR 109, O2 sat 100% RA, Afebrile. Hemoglobin 9.2. Chemistry essentially unremarkable except for GFR 79. INR 1.0. Hemoccult + on exam. Started on Protonix gtt in ER. CBC/BMP: 02/25/18 0819 02/25/18 0810 Significant Findings Laboratory Tests Test 02/22/18 10:50 02/22/18 20:46 02/23/18 08:38 02/24/18 06:56 Hemoglobin 9.6 GM/DL (13.0-17.0) 10.1 GM/DL (13.0-17.0) 9.4 GM/DL (13.0-17.0) 9.0 GM/DL (13.0-17.0) Hematocrit 29.2 % (39.0-51.0) 30.5 % (39.0-51.0) 27.6 % (39.0-51.0) 27.6 % (39.0-51.0) Red Blood Count 3.39 MIL/MM3 (4.50-5.90) 3.31 MIL/MM3 (4.50-5.90) Red Cell Distribution Width 24.2 % (11.6-17.2) 24.1 % (11.6-17.2) Neutrophils (%) (Auto) 74.3 % (16.0-70.0) 71.9 % (16.0-70.0) Monocytes (%) (Auto) 12.1 % (0.0-8.0) 11.9 % (0.0-8.0) Lymphocytes # (Auto) 0.9 TH/MM3 (1.0-4.8) 0.8 TH/MM3 (1.0-4.8) Monocytes # (Auto) 1.0 TH/MM3 (0-0.9) Albumin 2.5 GM/DL (3.4-5.0) Calcium Level 8.0 MG/DL (8.5-10.1) 7.9 MG/DL (8.5-10.1) Sodium Level 135 MEQ/L (136-145) Potassium Level 3.2 MEQ/L (3.5-5.1) 3.2 MEQ/L (3.5-5.1) Eosinophils (%) (Auto) 4.7 % (0.0-4.0) Random Glucose 155 MG/DL (74-106) Test 02/25/18 08:10 02/25/18 08:19 Random Glucose 120 MG/DL (74-106) Calcium Level 7.9 MG/DL (8.5-10.1) Sodium Level 135 MEQ/L (136-145) Red Blood Count 3.36 MIL/MM3 (4.50-5.90) Hemoglobin 8.9 GM/DL (13.0-17.0) Hematocrit 27.6 % (39.0-51.0) Mean Corpuscular Hemoglobin 26.5 PG (27.0-34.0) Red Cell Distribution Width 23.3 % (11.6-17.2) Imaging Last Impressions Chest X-Ray 02/23/18 0000 Signed Impressions: Service Date/Time: Friday, February 23, 2018 16:18 - CONCLUSION: 1. Minimal basilar atelectasis or scarring. No active disease. Lanre Cardoso MD Abdomen/Pelvis CT 02/21/18 0000 Signed Impressions: Service Date/Time: Wednesday, February 21, 2018 18:15 - CONCLUSION: 12 cm mass left upper quadrant consistent with gastric carcinoma with involvement of liver and spleen. Numerous metastatic deposits are present in the liver. Cam Alvarado MD FACR PE at Discharge GENERAL: This is a well-nourished, well-developed patient, in no apparent distress. CARDIOVASCULAR: Normal rate and regular rhythm without murmurs, gallops, or rubs. RESPIRATORY: Good respiratory efforts. Breath sounds equal and clear to auscultation bilaterally. GASTROINTESTINAL: Abdomen soft, non-tender, non-distended. Normal active bowel sounds MUSCULOSKELETAL: Extremities without cyanosis, or edema. NEURO: Alert & Oriented x4 to person, place, time, situation. Moves all ext x4 PSYCH: Appropriate mood and affect. Pt update on day of discharge Patient reports he is feeling okay today. Pain is controlled. No further evidence of GI bleeding at this point. 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 Evaluation and treatment course detailed below: GI Bleed: h/o similar 11/22/17 s/p clipping by Dr. Fragoso. s/p repeat EGD w findings of Large ulcerated mass in gastric body, extending to fundus w no active bleeding, previous clip in place; s/p epinephrine injection and APC treatment done of the mass. -Bleeding seems to have stopped. Patient started radiation to help control bleeding. Fever: Resolved. No infectious focus. Anemia: Status post transfusion of 2 units of PRBC. H&H stable. Ulcerated gastric malignant mass: Follows w/ Oncologist in [place], previously on Chemo, Oncology consulted. Appreciate oncology assistance. Radiation oncology following. Scheduled to receive five treatments of radiation therapy to the stomach to help prevent future bleeding episodes. Patient will continue outpatient radiation treatment. Discussed with case management who will help arrange transportation to ensure the patient continues to get radiation. Pt Condition on Discharge: Good Discharge Disposition: Discharge Home Discharge Time: > 30 minutes Discharge Instructions DIET: Follow Instructions for: As Tolerated, No Restrictions Activities you can perform: Regular-No Restrictions Follow up Referrals: Oncology PCP Follow-up Continued Medications: Ferrous Sulfate (Iron) 18 Mg Tab 324 MG Insulin Aspart Inj (Novolog Inj) 1,000 Unit/10 Ml Vial 0 SQ DIRECTED for Blood Sugar Management, #10 ML 0 Refills Sliding Scale as directed. Lisinopril-Hctz (Lisinopril-Hctz) 10-12.5 Mg Tab 1 TAB PO DAILY for Blood Pressure Management, #30 TAB 0 Refills Oxycodone (Roxicodone) 30 Mg Tab 30 MG PO Q6H PRN for PAIN, #120 TAB 0 Refills Pantoprazole (Pantoprazole) 40 Mg Tab 40 MG PO DAILY for acid reduction, #30 TAB Kenneth Carolina MD Feb 25, 2018 10:39
[2018-02-25 11:49] VITALS: BP 147/85; PULSE 95; RESP 18; TEMP 99.1; O2SAT 97
[2018-02-25 16:15] VITALS: BP 137/78; PULSE 83; RESP 20; TEMP 99.5; O2SAT 100
[2018-02-25 16:50] VITALS: RESP 18
== END 2018-02-25 18:18 | disposition home or self-care (01) | DRG 543 ==
LOC: NEPE 17:31 → NEDA 20:15 → NEPFCDU 22:30 → OBSVTOIN 02-21 14:45 → HOCA 02-22 15:20 → HCIN 02-23 16:56
PROVIDERS: ADMIT Family Medicine; ATTEND Family Medicine
PROC: 30233N1 Transfusion of Nonautologous Red Blood Cells into Peripheral Vein, Percutaneous Approach (ICD-10-PCS; principal; 2018-02-20)
PROC: 0D568ZZ Destruction of Stomach, Via Natural or Artificial Opening Endoscopic (ICD-10-PCS; 2018-02-21)
PROC: 3E0G8GC Introduction of Other Therapeutic Substance into Upper GI, Via Natural or Artificial Opening Endoscopic (ICD-10-PCS; 2018-02-21)
DX: C49.A2 Gastrointestinal stromal tumor of stomach (principal); K92.2 Gastrointestinal hemorrhage, unspecified; I10 Essential (primary) hypertension; D64.9 Anemia, unspecified; E11.9 Type 2 diabetes mellitus without complications; E61.1 Iron deficiency; F17.210 Nicotine dependence, cigarettes, uncomplicated; K44.9 Diaphragmatic hernia without obstruction or gangrene; R63.4 Abnormal weight loss; R50.9 Fever, unspecified; Z92.21 Personal history of antineoplastic chemotherapy
CPT/HCPCS: 36430; 71046; 74177; 77263; 77290; 77295; 77300; 77334; 77412; 80048; 80053; 80069; 82728; 82948; 83540; 83550; 83735; 85014; 85018; 85025; 85027; 85610; 85730; 86850; 86900; 86901; 86902; 86920; 86922; 87040; 93005; 96361; 96365; 96375; 96376; 99222; C9113; G0378; J2270; J2405; J7030; J7042; J7120; P9016; Q9963; Q9967